=== PATIENT | male | born 1955 | race Caucasian/White ===

== ENCOUNTER → 2016-09-03 | Outpatient (REF) | payer BC ==
[2016-09-03 10:29] LABS: ALBUMIN/GLOBULIN RATIO 1.48 (1.00-1.93); ALKALINE PHOSPHATASE 75 U/L (45-117); ALT/SGPT 25 U/L (12-78); ANION GAP 9 MEQ/L (8-16); AST/SGOT 11 U/L (15-37); BLOOD UREA NITROGEN 24 MG/DL (7-18); CARBON DIOXIDE LEVEL 27 MEQ/L (21-32); CHLORIDE LEVEL 106 MEQ/L (98-107); CHOLESTEROL LEVEL 159 MG/DL (<200); CREATININE FOR GFR 1.06 MG/DL (0.70-1.30); GLOMERULAR FILTRATION RATE > 60.0 (>49); GLUCOSE, FASTING 100 MG/DL (80-110); POTASSIUM SERUM 4.5 MEQ/L (3.5-5.1); SODIUM LEVEL 142 MEQ/L (136-145); TOTAL PROTEIN 6.7 GM/DL (6.4-8.2); TRIGLYCERIDES LEVEL 66 MG/DL (<150)
== END ==
LOC: M SFHCLERA 08:21
PROVIDERS: ATTEND Internal Medicine
DX: I10 Essential (primary) hypertension (principal); E78.00 Pure hypercholesterolemia, unspecified

== ENCOUNTER → 2016-11-16 | Outpatient (CLI) | payer BC ==
[~2016-11-16] VITALS: Ht 182.9 cm; Wt 108.9 kg
[~2016-11-16] MED LIST: AMLO5TAB2 PO; ATOR1TAB21 PO; LIDOCAINE 2% INJ 100 MG/5 ML SDV (FOR ANES.) As Ordered ONE; LISI20TA PO; MELO15TA4 PO; NS 1,000 ML IV SCH; PROPOFOL 200 MG/20 ML VIAL As Ordered ONE; RANI1TAB6 PO
--- NOTE | 2016-11-16 10:01 | ROOR ---
Patient Name: Perico Erickson Procedure Date: 11/16/2016 9:41 AM Date of : 1955 Age: 61 Room: [facility] Gender: Male Note Status: Finalized Procedure: Colonoscopy Indications: High risk colon cancer surveillance: Personal history of colonic polyps, Last colonoscopy: January 2013 Providers: Young CAI MD Referring MD: Rich Gould MD Requesting Provider: Medicines: Monitored Anesthesia Care Complications: No immediate complications. Procedure: Pre-Anesthesia Assessment: - The heart rate, respiratory rate, oxygen saturations, blood pressure, adequacy of pulmonary ventilation, and response to care were monitored throughout the procedure. The Colonoscope was introduced through the anus and advanced to the cecum, identified by appendiceal orifice and ileocecal valve. The colonoscopy was performed without difficulty. The patient tolerated the procedure well. The quality of the bowel preparation was good. Findings: The perianal and digital rectal examinations were normal. A diminutive polyp was found in the sigmoid colon. The polyp was sessile. The polyp was removed with a cold snare. Resection and retrieval were complete. Multiple medium-mouthed diverticula were found in the sigmoid colon. Small Internal Hemorrhoids. The exam was otherwise without abnormality on direct and retroflexion views. Impression: - One diminutive polyp in the sigmoid colon, removed with a cold snare. Resected and retrieved. - Mild diverticulosis in the sigmoid colon. - Small Internal Hemorrhoids. - The examination was otherwise normal on direct and retroflexion views. Recommendation: - Repeat colonoscopy in 5 years for surveillance based on personal history of previous adenomatous polyps. Young Cai MD Young CAI MD 11/16/2016 10:01:28 AM This report has been signed electronically. Number of Addenda: 0 Note Initiated On: 11/16/2016 9:41 AM Estimated Blood Loss: Estimated blood loss: none.
[2016-11-16 10:30] VITALS: BP 155/82
== END | disposition home or self-care (01) ==
LOC: M OPP 08:17
PROVIDERS: ATTEND Internal Medicine Gastroenterology
DX: Z12.11 Encounter for screening for malignant neoplasm of colon (principal); D12.5 Benign neoplasm of sigmoid colon; K57.30 Diverticulosis of large intestine without perforation or abscess without bleeding; K64.8 Other hemorrhoids; Z86.010 Personal history of colon polyps; K57.92 Diverticulitis of intestine, part unspecified, without perforation or abscess without bleeding; I10 Essential (primary) hypertension; E78.5 Hyperlipidemia, unspecified; M19.90 Unspecified osteoarthritis, unspecified site; M25.9 Joint disorder, unspecified; Z79.899 Other long term (current) drug therapy; Z80.3 Family history of malignant neoplasm of breast

== ENCOUNTER → 2017-03-05 | Outpatient (REF) | payer BC ==
[~2017-03-05] MED LIST changes: -LIDOCAINE 2% INJ 100 MG/5 ML SDV (FOR ANES.) As Ordered ONE; -NS 1,000 ML IV SCH; -PROPOFOL 200 MG/20 ML VIAL As Ordered ONE
[2017-03-05 11:53] LABS: MEAN CORPUSCULAR HEMOGLOBIN 30.2 pg (27.0-33.0); MEAN CORPUSCULAR HGB CONC 34.3 g/dl (32.0-36.5); MEAN CORPUSCULAR VOLUME 88.2 fl (80.0-96.0); RED CELL DISTRIBUTION WIDTH 12.1 % (11.5-14.5); WHITE BLOOD COUNT 5.1 K/mm3 (4.0-10.0)
[2017-03-05 12:08] LABS: ALBUMIN 4.2 GM/DL (3.2-5.2); ALBUMIN/GLOBULIN RATIO 1.35 (1.00-1.93); ALKALINE PHOSPHATASE 91 U/L (45-117); ALT/SGPT 34 U/L (12-78); ANION GAP 6 MEQ/L (8-16); AST/SGOT 13 U/L (15-37); BILIRUBIN,TOTAL 0.8 MG/DL (0.2-1.0); BLOOD UREA NITROGEN 27 MG/DL (7-18); CALCIUM LEVEL 9.3 MG/DL (8.8-10.2); CARBON DIOXIDE LEVEL 31 MEQ/L (21-32); CHLORIDE LEVEL 104 MEQ/L (98-107); CHOLESTEROL LEVEL 178 MG/DL (<200); CREATININE FOR GFR 1.27 MG/DL (0.70-1.30); GLOMERULAR FILTRATION RATE > 60.0 (>49); GLUCOSE, FASTING 98 MG/DL (80-110); MAGNESIUM LEVEL 2.3 MG/DL (1.8-2.4); POTASSIUM SERUM 4.3 MEQ/L (3.5-5.1); SODIUM LEVEL 141 MEQ/L (136-145); TOTAL PROTEIN 7.3 GM/DL (6.4-8.2); TRIGLYCERIDES LEVEL 91 MG/DL (<150)
== END ==
LOC: M SFHCLERA 08:31
PROVIDERS: ATTEND Internal Medicine
DX: K21.9 Gastro-esophageal reflux disease without esophagitis (principal); I10 Essential (primary) hypertension; E78.00 Pure hypercholesterolemia, unspecified

== ENCOUNTER → 2017-08-24 | Outpatient (REF) | payer BC ==
[2017-08-24 18:14] LABS: ANION GAP 10 MEQ/L (8-16); BLOOD UREA NITROGEN 20 MG/DL (7-18); CALCIUM LEVEL 9.1 MG/DL (8.8-10.2); CARBON DIOXIDE LEVEL 26 MEQ/L (21-32); CHLORIDE LEVEL 102 MEQ/L (98-107); CREATININE FOR GFR 1.19 MG/DL (0.70-1.30); GLOMERULAR FILTRATION RATE > 60.0 (>49); GLUCOSE, FASTING 91 MG/DL (70-100); SODIUM LEVEL 138 MEQ/L (136-145)
== END ==
LOC: M LABDRAWP 17:12
DX: Z01.812 Encounter for preprocedural laboratory examination (principal); S76.111A Strain of right quadriceps muscle, fascia and tendon, initial encounter; W18.30XA Fall on same level, unspecified, initial encounter; Y92.009 Unspecified place in unspecified non-institutional (private) residence as the place of occurrence of the external cause
CPT/HCPCS: 80048

== ENCOUNTER → 2017-09-08 | Outpatient (REF) | payer BC ==
[2017-09-09 12:41] LABS: APPEARANCE, URINE CLEAR (CLEAR); BACTERIA, URINE AUTO NEGATIVE (NEGATIVE); BILIRUBIN, URINE AUTO NEGATIVE (NEGATIVE); BLOOD, URINE BLOOD 1+ (NEGATIVE); COLOR, URINE YELLOW (YELLOW); GLUCOSE, URINE (UA) AUTO NEGATIVE (NEGATIVE); KETONE, URINE AUTO NEGATIVE (NEGATIVE); LEUKOCYTE ESTERASE, URINE AUTO NEGATIVE (NEGATIVE); MUCUS, URINE SMALL (NEGATIVE); NITRITE, URINE AUTO NEGATIVE (NEGATIVE); PROTEIN, URINE AUTO NEGATIVE (NEGATIVE); RBC, URINE AUTO 1 /HPF (0-3); SPECIFIC GRAVITY URINE AUTO 1.014 (1.002-1.035); SQUAMOUS EPITHELIAL CELL UR AU 0 /HPF (0-6); UROBILINOGEN, URINE AUTO 0.2 mg/dL (0.0-2.0); WBC, URINE AUTO 0 /HPF (0-3)
== END ==
LOC: M SFHCPLAZ 16:16
DX: R30.0 Dysuria (principal)
CPT/HCPCS: 81001

== ENCOUNTER → 2017-11-16 | Outpatient (REF) | payer BC ==
[2017-11-16 12:44] LABS: ALBUMIN 4.1 GM/DL (3.2-5.2); ALBUMIN/GLOBULIN RATIO 1.28 (1.00-1.93); ALKALINE PHOSPHATASE 89 U/L (45-117); ALT/SGPT 28 U/L (12-78); ANION GAP 6 MEQ/L (8-16); AST/SGOT 13 U/L (7-37); BILIRUBIN,TOTAL 0.9 MG/DL (0.2-1.0); BLOOD UREA NITROGEN 16 MG/DL (7-18); CARBON DIOXIDE LEVEL 28 MEQ/L (21-32); CHLORIDE LEVEL 105 MEQ/L (98-107); CHOLESTEROL LEVEL 179 MG/DL (<200); CHOLESTEROL RISK RATIO 4.068 (<5); CREATININE FOR GFR 1.16 MG/DL (0.70-1.30); GLOMERULAR FILTRATION RATE > 60.0 (>49); GLUCOSE, FASTING 102 MG/DL (70-100); HDL CHOLESTEROL 44 MG/DL (>40); LDL CHOLESTEROL 102.6 MG/DL (<100); MAGNESIUM LEVEL 2.2 MG/DL (1.8-2.4); NON-HDL-C 135 MG/DL; POTASSIUM SERUM 4.3 MEQ/L (3.5-5.1); SODIUM LEVEL 139 MEQ/L (136-145); TOTAL PROTEIN 7.3 GM/DL (6.4-8.2); TRIGLYCERIDES LEVEL 162 MG/DL (<150)
== END ==
LOC: M SFHCLERA 08:24
DX: I10 Essential (primary) hypertension (principal); E78.00 Pure hypercholesterolemia, unspecified
CPT/HCPCS: 83735

== ENCOUNTER → 2018-04-20 | Outpatient (REF) | payer BC ==
[2018-04-20 11:35] LABS: HEMATOCRIT 40.8 % (42.0-52.0); HEMOGLOBIN 13.8 g/dl (13.5-17.5); MEAN CORPUSCULAR HEMOGLOBIN 29.1 pg (27.0-33.0); MEAN CORPUSCULAR HGB CONC 33.8 g/dl (32.0-36.5); MEAN CORPUSCULAR VOLUME 86.1 fl (80.0-96.0); PLATELET COUNT, AUTOMATED 187 10^3/uL (150-450); RED BLOOD COUNT 4.74 10^6/uL (4.30-6.10); RED CELL DISTRIBUTION WIDTH 11.8 % (11.5-14.5)
[2018-04-20 12:22] LABS: ALBUMIN 4.1 GM/DL (3.2-5.2); ALBUMIN/GLOBULIN RATIO 1.41 (1.00-1.93); ALKALINE PHOSPHATASE 83 U/L (45-117); ALT/SGPT 24 U/L (12-78); ANION GAP 10 MEQ/L (8-16); AST/SGOT 9 U/L (7-37); BLOOD UREA NITROGEN 21 MG/DL (7-18); CALCIUM LEVEL 9.3 MG/DL (8.8-10.2); CARBON DIOXIDE LEVEL 25 MEQ/L (21-32); CHLORIDE LEVEL 104 MEQ/L (98-107); CHOLESTEROL LEVEL 178 MG/DL (<200); CHOLESTEROL RISK RATIO 4.238 (<5); CREATININE FOR GFR 1.21 MG/DL (0.70-1.30); GLOMERULAR FILTRATION RATE > 60.0 (>49); GLUCOSE, FASTING 99 MG/DL (70-100); HDL CHOLESTEROL 42 MG/DL (>40); LDL CHOLESTEROL 109 MG/DL (<100); MAGNESIUM LEVEL 2.3 MG/DL (1.8-2.4); NON-HDL-C 136 MG/DL; POTASSIUM SERUM 4.4 MEQ/L (3.5-5.1); SODIUM LEVEL 139 MEQ/L (136-145); TRIGLYCERIDES LEVEL 134 MG/DL (<150)
[2018-04-20 12:49] LABS: ESTIMATED AVERAGE GLUCOSE 120 MG/DL (60-110); HEMOGLOBIN A1c 5.8 %
== END ==
LOC: M SFHCPLAZ 08:46
DX: K21.9 Gastro-esophageal reflux disease without esophagitis (principal); I10 Essential (primary) hypertension; R73.01 Impaired fasting glucose; E78.00 Pure hypercholesterolemia, unspecified

== ENCOUNTER → 2018-10-27 | Outpatient (REF) | payer BC, MEDICARE ==
[~2018-10-27] MED LIST changes: -AMLO5TAB2 PO; +AMLO5TAB6 PO; +MELO15TA28 PO; -MELO15TA4 PO
[2018-10-27 11:38] LABS: HEMATOCRIT 44.8 % (42.0-52.0); HEMOGLOBIN 14.8 g/dl (13.5-17.5); MEAN CORPUSCULAR VOLUME 87.8 fl (80.0-96.0); PLATELET COUNT, AUTOMATED 199 10^3/uL (150-450)
[2018-10-27 11:43] LABS: ALBUMIN 4.2 GM/DL (3.2-5.2); ALT/SGPT 23 U/L (12-78); BILIRUBIN,TOTAL 1.3 MG/DL (0.2-1.0); BLOOD UREA NITROGEN 20 MG/DL (7-18); CALCIUM LEVEL 9.3 MG/DL (8.8-10.2); CARBON DIOXIDE LEVEL 28 MEQ/L (21-32); CHLORIDE LEVEL 105 MEQ/L (98-107); CHOLESTEROL LEVEL 174 MG/DL (<200); CHOLESTEROL RISK RATIO 4.046 (<5); GLOMERULAR FILTRATION RATE > 60.0 (>49); GLUCOSE, FASTING 99 MG/DL (70-100); HDL CHOLESTEROL 43 MG/DL (>40); LDL CHOLESTEROL 109 MG/DL (<100); MAGNESIUM LEVEL 2.1 MG/DL (1.8-2.4); NON-HDL-C 131 MG/DL; POTASSIUM SERUM 4.5 MEQ/L (3.5-5.1); SODIUM LEVEL 139 MEQ/L (136-145); TOTAL PROTEIN 7.1 GM/DL (6.4-8.2); TRIGLYCERIDES LEVEL 111 MG/DL (<150)
== END ==
LOC: M SFHCPLAZ 09:31
PROVIDERS: ATTEND Internal Medicine
DX: K21.9 Gastro-esophageal reflux disease without esophagitis (principal); I10 Essential (primary) hypertension; E78.00 Pure hypercholesterolemia, unspecified; Z86.010 Personal history of colon polyps

== ENCOUNTER → 2019-04-27 | Outpatient (REF) | payer BC, MEDICARE ==
[~2019-04-27] MED LIST changes: +ALDA25TA2 PO; +AMIO200T PO; +AMLO10TA5; +AMLO10TA5 PO; +ATEN50TA2 PO; +CHLO125TA; +CHLO25TA PO; +ELIQ5TAB PO; +FAMO20TA PO; +LISI-538; +LISI-538 PO; +LISI10TA4 PO; -LISI20TA PO; +LISI20TA19 PO; +RANI-356 PO; +RANI1TAB38 PO; -RANI1TAB6 PO; +TORS10TA3 PO
[2019-04-27 11:33] LABS: HEMOGLOBIN 14.3 g/dl (13.5-17.5); MEAN CORPUSCULAR HEMOGLOBIN 31.1 pg (27.0-33.0); MEAN CORPUSCULAR HGB CONC 34.9 g/dl (32.0-36.5); MEAN CORPUSCULAR VOLUME 89.1 fl (80.0-96.0); PLATELET COUNT, AUTOMATED 200 10^3/uL (150-450)
[2019-04-27 11:59] LABS: ALBUMIN 3.9 GM/DL (3.2-5.2); ALT/SGPT 27 U/L (12-78); BILIRUBIN,TOTAL 1.5 MG/DL (0.2-1.0); BLOOD UREA NITROGEN 19 MG/DL (7-18); CARBON DIOXIDE LEVEL 28 MEQ/L (21-32); CHLORIDE LEVEL 101 MEQ/L (98-107); CREATININE FOR GFR 1.15 MG/DL (0.70-1.30); GLOMERULAR FILTRATION RATE > 60.0 (>49); GLUCOSE, FASTING 106 MG/DL (70-100); MAGNESIUM LEVEL 1.9 MG/DL (1.8-2.4); POTASSIUM SERUM 4.1 MEQ/L (3.5-5.1); SODIUM LEVEL 138 MEQ/L (136-145)
== END ==
LOC: M SFHCPLAZ 08:30
PROVIDERS: ATTEND Internal Medicine
DX: K21.9 Gastro-esophageal reflux disease without esophagitis (principal); I10 Essential (primary) hypertension

== ENCOUNTER 2019-05-29 19:38 | Inpatient (IN) | payer BC, MEDICARE ==
[~2019-05-29] VITALS: Ht 182.9 cm; Wt 113.7 kg
[~2019-05-29 19:38] MED LIST changes: -ALDA25TA2 PO; -AMIO200T PO; -AMLO10TA5; -AMLO10TA5 PO; -ATEN50TA2 PO; -CHLO125TA; -CHLO25TA PO; -ELIQ5TAB PO; -FAMO20TA PO; -LISI-538; -LISI-538 PO; -LISI10TA4 PO; -RANI1TAB38 PO; -TORS10TA3 PO
[2019-05-29] MEDS ORDERED: AMLO10TA5 (19:50)
[2019-05-29] MEDS ORDERED: CHLO125TA (19:50)
[2019-05-29] MEDS ORDERED: LISI-538 (19:50)
[2019-05-29 20:18] LABS: BASO % 0.4 % (0.0-1.0); EOS # 0.2 10^3/uL (0.0-0.5); EOS % 2.6 % (0.0-3.0); HEMATOCRIT 41.4 % (42.0-52.0); HEMOGLOBIN 13.8 g/dl (13.5-17.5); LYMPH % 27.3 % (24.0-44.0); MEAN CORPUSCULAR HEMOGLOBIN 29.7 pg (27.0-33.0); MEAN CORPUSCULAR HGB CONC 33.3 g/dl (32.0-36.5); MEAN CORPUSCULAR VOLUME 89.2 fl (80.0-96.0); MONO # 1.2 10^3/uL (0.0-0.8); MONO % 16.8 % (0.0-5.0); NEUTROPHILS # 3.9 10^3/uL (1.5-8.5); NEUTROPHILS % 52.5 % (36.0-66.0); PLATELET COUNT, AUTOMATED 218 10^3/uL (150-450); RED BLOOD COUNT 4.64 10^6/uL (4.30-6.10); WHITE BLOOD COUNT 7.4 10^3/uL (4.0-10.0)
[2019-05-29] MEDS: METOPROLOL 5 MG/5 ML VIAL IV SCH ×6 (20:29→21:25)
[2019-05-29 20:40] LABS: BLOOD UREA NITROGEN 28 MG/DL (7-18); CALCIUM LEVEL 9.1 MG/DL (8.8-10.2); CARBON DIOXIDE LEVEL 24 MEQ/L (21-32); CHLORIDE LEVEL 104 MEQ/L (98-107); CK-MB VALUE MASS 1.5 NG/ML (<3.6); CPK CREATINE PHOSPHOKINASE 139 U/L (39-308); CREATININE FOR GFR 1.48 MG/DL (0.70-1.30); GLOMERULAR FILTRATION RATE 50.8 (>49); GLUCOSE, FASTING 117 MG/DL (70-100); MB/CK RELATIVE INDEX 1.08 (< OR =4); SODIUM LEVEL 138 MEQ/L (136-145); TROPONIN I < 0.02 NG/ML (< 0.10)
[2019-05-29] MEDS: ACETAMINOPHEN TAB 650MG DOSE (2X325MG) PO SCH (21:00)
[2019-05-29] MEDS: LISINOPRIL 10 MG TAB PO SCH (21:00)
[2019-05-29 21:05] LABS: FREE T4 1.05 NG/DL (0.76-1.46); MAGNESIUM LEVEL 1.9 MG/DL (1.8-2.4)
[2019-05-29] MEDS ORDERED: METOPROLOL TART 50 MG TAB PO ONE ×3 (21:15→23:45)
[2019-05-29] MEDS ORDERED: DIGOXIN INJ 0.5 MG/2 ML AMP (J1160) IV ONE ×2 (22:15→23:45)
[2019-05-30] VITALS (12 sets, daily range): BP systolic 96–155; BP diastolic 58–110
[2019-05-30] MEDS ORDERED: METOPROLOL TART 50 MG TAB PO ONE (01:00)
[2019-05-30] MEDS ORDERED: DIGOXIN INJ 0.5 MG/2 ML AMP (J1160) IV ONE (01:00)
[2019-05-30] MEDS ORDERED: AMIODARONE 200 MG TAB (PACERONE) PO ONE (01:15)
[2019-05-30 01:22] LABS: NT-PRO BNP 1421 PG/ML (<125)
[2019-05-30] MEDS ORDERED: RANI1TAB38 PO ×2 (01:29)
[2019-05-30] MEDS ORDERED: AMLO10TA5 PO (01:29)
[2019-05-30] MEDS ORDERED: MELO15TA28 PO (01:29)
[2019-05-30] MEDS ORDERED: LISI-538 PO (01:29)
[2019-05-30] MEDS ORDERED: CHLO25TA PO (01:29)
--- NOTE | 2019-05-30 01:48 | REP ---
Clinical: Chest pain . Comparison: None . Findings: The mediastinum and cardiac silhouette are relatively normal. Calcified hilar lymph nodes are suggested. The lung mitchell are clear without acute consolidation, effusion, or pneumothorax. Skeletal structures are intact. Impression: Calcified hilar lymph nodes suggesting prior granulomas disease. No focal consolidation. Electronically Signed by Francisco J Ngo MD 05/30/2019 01:39 A
[2019-05-30] MEDS: APIXABAN 5 MG TAB (ELIQUIS) PO SCH ×3 (03:04→21:44)
[2019-05-30 05:38] LABS: ALBUMIN 3.7 GM/DL (3.2-5.2); BLOOD UREA NITROGEN 24 MG/DL (7-18); CALCIUM LEVEL 8.8 MG/DL (8.8-10.2); CARBON DIOXIDE LEVEL 26 MEQ/L (21-32); CHLORIDE LEVEL 105 MEQ/L (98-107); CREATININE FOR GFR 1.33 MG/DL (0.70-1.30); GLOMERULAR FILTRATION RATE 57.4 (>49); GLUCOSE, FASTING 105 MG/DL (70-100); PHOSPHORUS LEVEL 3.5 MG/DL (2.5-4.9); POTASSIUM SERUM 4.1 MEQ/L (3.5-5.1); SODIUM LEVEL 139 MEQ/L (136-145); TROPONIN I < 0.02 NG/ML (< 0.10)
[2019-05-30] MEDS: ATENOLOL 50 MG TAB PO SCH ×4 (06:00→17:18)
[2019-05-30 08:18] LABS: ALT/SGPT 24 U/L (12-78); BILIRUBIN,DIRECT 0.2 MG/DL (0.0-0.2); BILIRUBIN,TOTAL 0.7 MG/DL (0.2-1.0); TOTAL PROTEIN 7.2 GM/DL (6.4-8.2)
[2019-05-30] MEDS: SPIRONOLACTONE 12.5MG PER 1/2 TABLET PO SCH (08:30)
[2019-05-30] MEDS ORDERED: PILL CUTTER 1 EACH XX PRN (08:30)
[2019-05-30] MEDS: LISINOPRIL 10 MG TAB PO SCH ×2 (08:31→21:44)
[2019-05-30] MEDS: TORSEMIDE 10 MG TABLET PO SCH (08:31)
[2019-05-30] MEDS: AMIODARONE 200 MG TAB (PACERONE) PO SCH ×4 (08:32→21:44)
[2019-05-30] MEDS: ATORVASTATIN 20 MG TAB PO SCH (08:32)
[2019-05-30] MEDS: FAMOTIDINE 20 MG TAB PO SCH (08:32)
[2019-05-30] MEDS: ACETAMINOPHEN TAB 650MG DOSE (2X325MG) PO SCH ×4 (08:35→21:00)
--- NOTE | 2019-05-30 10:15 | HPE ---
ADMISSION HISTORY AND PHYSICAL: DATE OF ADMISSION: 05/30/2019 Attending Physician: Dr. Kali Colón. Primary Care Physician: Dr. Rich Gould. CHIEF COMPLAINT: Increasing fatigue and palpitations with rapid pulse rate. 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 Gould for multiple medical problems including obesity and hypertension. Up until the past year he claims his chief limitation has been knee arthralgia. For the past year has been noticing intermittent sense of irregularity in his chest that might last moments or several minutes. Describes associated sense of weakness but no chest pain or dyspnea. This past week the sensation has been more intense persisting for 10 minutes or up to 1 hour. Yesterday the same symptoms recurred at approximately 5 p.m. but persisted leading to his current emergency room (ER) presentation. Upon his arrival in the emergency room, his initial vital signs showed a pulse rate of 152 beats per minute, blood pressure 190/104, respiratory rate 18 with oxygen saturation 100% on room air, afebrile. EKG showed atrial fibrillation with rapid ventricular response averaging 151 beats per minute. Chest x-ray was reported to show "cardiac silhouette relatively normal", "lung mitchell are clear without consolidation, effusion or pneumothorax." Complete blood count was normal. Chemistry showed a degree of azotemia, but negative cardiac enzymes and thyroid profile. After a series of doses of metoprolol 5 mg IV every 5 minutes and 50 mg by mouth to no avail, my cardiology service was contacted. Over the course of several hours digoxin was administered IV to a maximum of 1 mg with total metoprolol oral dosage and amiodarone 200 mg by mouth, his ventricular response was finally seemingly controlled between 90-120 beats per minute. We also started him on Eliquis 5 mg. In light of the difficulty of controlling his ventricular response, he was admitted to a telemetry unit for additional observation. OTHER CARDINAL CARDIAC SYMPTOMS: The patient's most vigorous activity had been going to the gym three times a week during the wintertime and some yard work chiefly limited he claims by knee arthralgia but also increasing effort dyspnea for the past year along with some fatigue. Chest Pain: Denies effort related chest pain. He is unaware of an abnormal EKG. Despite multiple coronary risk factors, no prior stress testing. History of gastroesophageal reflux with heartburn and reflux for the past 5 years. Treated with ranitidine. Denies dysphagia or gastrointestinal(GI) bleeding. Shortness of breath: Was exposed to secondhand smoke for at least 18 years growing up and started smoking himself at age 14 up to 1-1/2 packs per day until he stopped in his 50s. He cannot recall his last chest x-ray. Currently denies any cough but does have occasional sinus problems. No history of hemoptysis or prior pneumonia. Treated hypertension since his 50s with recent rate readings 140-150/70s. Unaware of cardiomegaly. Significant weight problem (weighed 150 pounds at age 16; max weight currently at 252 pounds; claims to have gained 5 pounds this past year). No history of rheumatic fever or heart murmur. Has had increasing effort dyspnea in the past year. Has had some restless sleeping and nocturnal dyspnea. Denies history of snoring or apnea but has a family history of obstructive sleep apnea. Palpitations: As mentioned above, has had an abnormal awareness of his heart action the past year and certainly more distressing recently. No previously documented rhythm disturbance. Does have a family history of atrial fibrillation. Denies any family history of premature sudden cardiac or congenital deafness. Admits to drinking at least 1 to 1-1/2 cups of caffeinated coffee daily and half a gallon of caffeinated iced tea daily. Occasional soda. At least two alcoholic beverages weekly. No history of thyroid dysfunction. Does not use [id number] decongestants, pep pills or diet pills. Near syncope/syncope: With his bouts of pulse irregularity does become fatigued and sits down but his only falls have been related to slipping on the ice. No prior loss of consciousness. Embolic phenomenon: Denies any lateralizing neurological deficit, flank pain, hematuria or blue toe syndrome. Claudication/peripheral venous disease: Denies effort related calf discomfort. Unaware of varicose veins or phlebitis but has noted some ankle swelling the past year or so. CARDINAL CARDIAC RISK FACTORS: Male gender. Age. Obesity. Hypertension. Hypercholesterolemia for at least past 5-6 years. Denies diabetes mellitus, carotid vascular disease or family history of premature coronary disease. OTHER PAST MEDICAL/SURGICAL HISTORY: Obesity. Two prior knee surgeries left and right. Prior colonic polypectomy. History of prior diverticulitis. SYSTEMS REVIEW: Denies any fever, chills or weight loss. Wears corrective lenses. No hearing problems. Has own teeth. Respiratory and cardiac as mentioned above. GI as mentioned above. History of diverticular disease, but no GI bleeding or melena. Nocturia once to three times nightly, some hesitancy. Unaware of a history of prostatism or prior renal insufficiency. No history of kidney stones. Bilateral knee arthralgia but no other joint complaints. Seasonal allergies. All other systems review is negative. MEDICATIONS: At home his medications included: - lisinopril 20 mg by mouth daily - chlorthalidone 25 mg daily - amlodipine 10 mg daily - atorvastatin 20 mg tablets Mondays, Wednesdays and Fridays only - ranitidine 150 mg by mouth every morning with second dose every evening as needed - meloxicam 15 mg by mouth daily as needed, arthralgia ALLERGIES: NONE KNOWN. PHYSICAL EXAMINATION: Constitutional: Barrel-chested, obese, late middle-aged male currently lying comfortably with the head of bed elevated 30 degrees. No obvious pallor or cyanosis. Vital signs: Heart rate varying between 80s-120. Blood pressure 128/74 right arm supine, 136/82 right arm sitting, 144/78 left arm sitting. Respiratory rate 16. Oxygen saturation 96% on room air. Afebrile. Weight 263 pounds. Height 72 inches. Body mass index (BMI) 35.7 Eyes: Bilateral senile arcus but no pallor or icterus. No xanthelasma. ENT/Mouth: Multiple missing teeth but normal oral moisture. No central cyanosis. Neck: Trachea midline. Thyroid not enlarged. Jugular veins were elevated at least 8-10 cm above the sternal angle. Respiratory: Increased anteroposterior chest diameter with slightly reduced chest expansion with fair air entry over both lung mitchell. No inspiratory rales. Slight prolongation of expiration but no audible wheeze. Cardiovascular: Apical impulse not palpable. Heart sounds somewhat distant and variable. S2 splitting was still appreciated with accentuated pulmonary component of S2 audible over the right base. No audible gallop, murmur or rub. Carotid arteries show a normal upstroke but variable volume related to his arrhythmia. No bruits. Peripheral pulses were symmetrical for his upper extremities. Abdominal aorta was not palpable. No bruit. Femoral pulses were challenging because of his obesity. Pedal pulses were slightly challenging because of his dependent edema. No obvious varicose veins but a few dilated superficial venules. Obvious pitting edema three-quarters of the way up both lower legs and over his sacrum and lower lumbar spine posteriorly. GI: Protuberant, obese abdomen with lower abdominal pannus. Unable to detect hepatosplenomegaly. Normal bowel sounds. Rectal examination not indicated but stool will be collected for occult blood. Musculoskeletal: Obvious well-healed incisions over both knees but no other joint deformities. Muscular strength and tone appear to be normal. Normal spine curvature. Gait was not assessed at this time. Neuro/Psych: Bright, alert and oriented, gave a fair history. Eye, facial, extremity movements were symmetrical and normal. No involuntary movements. Skin: Some degenerative changes of skin both lower legs but no other rashes, ecchymotic lesions, pallor or icterus. INVESTIGATIONS: Chest x-ray: Portable upright study performed in the emergency room yesterday was reviewed independently. My radiology colleagues opinion it showed obvious cardiomegaly even allowing for this portable technique. Slightly unfolded thoracic aorta. Somewhat prominent pulmonary trunk and proximal pulmonary vasculature with somewhat accentuated interstitial markings but no obvious Meagan B lines or pleural effusions. EKG: Tracing taken yesterday at 7:49 p.m. showed underlying atrial fibrillation with rapid ventricular response averaging 151 bpm. Low voltages with extreme left axis deviation and poor precordial R wave progression with persistent S waves V5 and V6. Appearance related to obesity and his prior smoking history. Could not rule out prior septal or inferior infarctions. Has anterolateral ST/T wave abnormalities. Despite his multiple coronary risk factors and hypertension there is no prior EKG available for comparison. Blood work: Admission complete blood count showed a hemoglobin of 13.8, normal white blood cell count and platelet count. Electrolytes were normal but BUN was elevated at 28, creatinine was 1.48. These values are up from April 27 when they measured 19 and 1.15. Random glucose was only slightly elevated at 117. Magnesium level was normal 1.9. Serum calcium was normal. Albumin 3.9. Cardiac enzymes were negative but BNP level was elevated at 1421. TSH was 2.86 with free T4 1.05. PROVISIONAL DIAGNOSIS: 1. New-onset atrial fibrillation with rapid ventricular response: Although a precise onset cannot be defined, I suspect from his history and the observed rapid rate this is unlikely to have been more than a few days at most. Undoubtedly this has contributed to his effort intolerance and lightheadedness. Given his clinical examination and chest x-ray and EKG findings this is likely related to left ventricular enlargement with left atrial enlargement secondary to his longstanding obesity and hypertension. Unable to detect a murmur to suggest valvular disease. An echocardiogram/Doppler study has been requested to define cardiac chamber sizes and valvular function. At this point, we have discussed the importance of avoiding caffeinated beverages and minimizing alcohol exposure. At this point, he has been digitalized but with his renal insufficiency and our initiation of amiodarone for heart rate and rhythm control I have elected to withhold further doses of digoxin for the time being. He is receiving amiodarone 200 mg four times a day and we will continue to monitor him for at least the next 72 hours in hospital. He will continue on atenolol 50 mg by mouth every 6 hours; hold for heart rate in atrial fibrillation for less than 90 beats per minute and in sinus rhythm for heart rate less than 60. He has been already started on Eliquis in light of his relatively high risk of systemic thromboembolic event (male gender, hypertension and congestive heart failure). I am cautiously optimistic that he will respond to these medical agents, electrocardioversion would be deferred until he is loaded on amiodarone in light of his rapid ventricular response and requiring multiple antiarrhythmic agents. 2. Heart failure (unspecified): Has obvious cardiomegaly as mentioned above with some evidence of pulmonary hypertension and right heart failure clinically. Underlying heart disease likely of some chronicity. We cannot find and old chest x-ray in the [facility] or an old EKG for comparison. Likely his left ventricular dysfunction has been prompted by his chronic obesity and hypertension but could not rule out prior infarction with his multiple coronary risk factors. We have discussed the crucial importance of a modest salt and caloric restriction as well as a modest fluid intake restriction. We have requested the assistance of the cardiac rehab service for congestive heart failure (CHF) education and gradual ambulation. He has been started on low-dose torsemide and spironolactone and we will closely monitor his blood pressure fluid status and renal function as well as electrolytes. His acute decompensation is likely related to recent onset atrial fibrillation with rapid ventricular response. Crucial management measure will be control of his heart rate and possibly christian of a normal sinus rhythm. As mentioned, echocardiogram/Doppler study is pending at this time. 3. Abnormal EKG: Features in keeping with his body habitus and pulmonary disease but as mentioned has at least a left axis deviation and repolarization abnormalities possibly related to underlying left ventricle hypertrophy. Could not rule out prior septal or inferior infarctions. Would be tempted to obtain an objective definition of his coronary prognosis as an outpatient. 4. Hypertensive heart disease (benign with heart failure): Decompensated as mentioned above. Suspect this has been a condition gradually worsening over some time. Current blood pressure would be considered fairly controlled but should be improved with combination of beta-rob, torsemide and spirolactone therapies. His lisinopril therapy will be withheld for systolic blood pressures less than 130 mmHg. Temporarily the dosage has been made 10 mg twice a day rather than 20 mg daily. 5. BMI 35.7: I suspect with his weight problem, sleep disorder and family history of obstructive sleep apnea he probably does have obstructive sleep apnea and this may account for an element of his right heart failure. His echocardiogram/Doppler study will objectively define his right heart chambers, pulmonary atrial and central venous pressures for us. While he is in hospital, we will obtain a nocturnal oximetry as a screen for obstructive sleep apnea. We have emphasized importance of weight reduction to reduce cardiopulmonary workload and reduce his risk of further rhythm disturbances and help his heart failure. A consultation has been placed with dietary for a low-carbohydrate diet, no added salt and 1500 mL fluid intake restriction. We have discussed these opinions and our plan with the patient and his daughter who is a physician assistant to the president. They appear to understand and agree. Further investigations and treatment will depend on his response to these measures. [place]
[2019-05-30 12:41] LABS: APPEARANCE, URINE CLEAR (CLEAR); BACTERIA, URINE AUTO NEGATIVE (NEGATIVE); BILIRUBIN, URINE AUTO NEGATIVE (NEGATIVE); BLOOD, URINE BLOOD NEGATIVE (NEGATIVE); COLOR, URINE COLORLESS (YELLOW); GLUCOSE, URINE (UA) AUTO NEGATIVE (NEGATIVE); KETONE, URINE AUTO NEGATIVE (NEGATIVE); LEUKOCYTE ESTERASE, URINE AUTO NEGATIVE (NEGATIVE); MUCUS, URINE SMALL (NEGATIVE); NITRITE, URINE AUTO NEGATIVE (NEGATIVE); PROTEIN, URINE AUTO NEGATIVE (NEGATIVE); RBC, URINE AUTO 0 /HPF (0-3); SPECIFIC GRAVITY URINE AUTO 1.004 (1.002-1.035); SQUAMOUS EPITHELIAL CELL UR AU 0 /HPF (0-6); UROBILINOGEN, URINE AUTO 0.2 mg/dL (0.0-2.0); WBC, URINE AUTO 0 /HPF (0-3)
--- NOTE | 2019-05-30 20:01 | ECHO ---
DATE OF PROCEDURE: 05/30/2019 DATE OF : 1955 AGE: 63 GENDER: Male HEIGHT: 72 inches WEIGHT: 255 pounds BODY SURFACE AREA: 2.37 meters squared INPATIENT: Intensive care unit (ICU) REFERRING PHYSICIAN: Dr. Kali Colón INDICATION: Atrial fibrillation with heart failure (unspecified). MEASUREMENTS: 2D Measurements: RV: 5.2 cm LV: 5.2 cm Septum: 1.3 cm Posterior wall: 1.3 cm Aortic root: 3.6 cm LA: 5.2 cm LVEF: 60-65% DOPPLER MEASUREMENTS: AV: 1.1 meters per second LVOT: 0.6 meters per second LVOT diameter: 2.0 cm MV-E: 80 Early mitral deceleration time: 201 milliseconds E prime medial: 6.7 E prime lateral: 11 Average E/E prime ratio: 9 Pulmonary capillary wedge pressure: 13 mmHg PV: 0.6 meters per second Pulmonary artery acceleration time: 90 milliseconds RVSP: 56 mmHg IVC: 2.6 cm COMMENTS: Underlying atrial fibrillation with average ventricular response 100 beats per minute. No intraventricular conduction disturbance. M-mode and two-dimensional echocardiography was performed with pulsed, continuous wave, color flow and tissue Doppler studies. Mild concentric left ventricular hypertrophy with some flattening of the septum (believed to be due to right ventricular pressure overload) but other left ventricular wall segments moved normally or were hyperkinetic. Preserved global resting left ventricular systolic function. Prominently dilated left atrium with current Doppler estimated mean left atrial pressure at least mildly increased. Prominently dilated right heart chambers with a degree of right ventricular hypokinesis and Doppler evidence of at least moderately severe pulmonary hypertension. At least moderately dilated inferior vena cava with absent respiratory collapse in keeping with an elevated central venous pressure/right heart failure. Mild aortic valvular sclerosis without stenosis and very mild insufficiency. Normal aortic dimensions. Moderate mitral annular calcification with some thickening of the mitral leaflets with adequate leaflet excursion and no posterior systolic buckling. Mild mitral insufficiency. Normal appearing tricuspid valve with severe tricuspid insufficiency. No apparent intracardiac mass or pericardial effusion. Edited 05/30/2019 [facility]
--- NOTE | 2019-05-30 22:09 | ECGEPIP ---
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
[2019-05-31] VITALS: BP 135/80
[2019-05-31 04:00] VITALS: BP 130/70
[2019-05-31] MEDS: ATENOLOL 50 MG TAB PO SCH ×4 (06:00→17:19)
[2019-05-31 06:07] LABS: ALBUMIN 3.5 GM/DL (3.2-5.2); CALCIUM LEVEL 8.7 MG/DL (8.8-10.2); CREATININE FOR GFR 1.38 MG/DL (0.70-1.30); GLOMERULAR FILTRATION RATE 55.1 (>49); PHOSPHORUS LEVEL 3.7 MG/DL (2.5-4.9); POTASSIUM SERUM 4.2 MEQ/L (3.5-5.1)
[2019-05-31 08:00] VITALS: BP 124/72
[2019-05-31] MEDS: LISINOPRIL 10 MG TAB PO SCH ×2 (08:40→20:53)
[2019-05-31] MEDS: TORSEMIDE 10 MG TABLET PO SCH (08:50)
[2019-05-31] MEDS: ATORVASTATIN 20 MG TAB PO SCH (08:50)
[2019-05-31] MEDS: FAMOTIDINE 20 MG TAB PO SCH (08:50)
[2019-05-31] MEDS: AMIODARONE 200 MG TAB (PACERONE) PO SCH ×4 (08:51→20:52)
[2019-05-31] MEDS: SPIRONOLACTONE 12.5MG PER 1/2 TABLET PO SCH (08:51)
[2019-05-31] MEDS: APIXABAN 5 MG TAB (ELIQUIS) PO SCH ×2 (08:51→20:52)
[2019-05-31] MEDS: ACETAMINOPHEN TAB 650MG DOSE (2X325MG) PO SCH ×4 (08:51→20:54)
[2019-05-31 12:00] VITALS: BP 142/70
--- NOTE | 2019-05-31 15:36 | IPN ---
DATE: 05/31/2019 CARDIOLOGY PROGRESS NOTE SUBJECTIVE: The patient has been up in his room to the bathroom without any chest discomfort, awareness of his heart action, shortness of breath, or dizziness. He is very happy with his improved blood pressure control and the reduction in his systemic edema. He is tolerating his current combination medical therapy without adverse effect. OBJECTIVE: Pleasant, obese, barrel-chested, late middle-aged male, laying comfortably flat. Heart rate 72 beats per minute and irregular, blood pressure 112/70 supine, 118/68 sitting with legs dependent, respiratory rate 16 with oxygen saturation 97% on room air. Afebrile. Generated a negative fluid balance of 2145 mL yesterday with drop in his body weight from 119.4 to 116.8 kg. Normal oral moisture. No central cyanosis. Trachea midline. Neck veins remain elevated 8 cm above the sternal angle. Increased anteroposterior chest diameter with reduced chest excursion, but good air entry over both lung mitchell with no present abnormal pulmonary adventitious sounds. Apical impulse not palpable. Heart sounds somewhat distant but irregular. Soft abdomen. Lower extremity pitting has significantly decreased. Still has plus/minus sacral pitting. 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 No ventricular ectopic activity or high-grade atrioventricular (AV) block. EKG: EKG this morning again shows underlying atrial fibrillation with controlled ventricular response averaging 83 beats per minute (BPM). Low voltages with slow precordial R wave progression and persistent S wave V5 and V6 continue related to his body habitus and pulmonary disease. Left axis deviation with QS pattern leads III and aVF. Could not rule out prior infarction. Subtle repolarization abnormalities appear less today than yesterday. ECHOCARDIOGRAM: Study reported officially yesterday, but does confirm mild concentric left ventricular hypertrophy with septal wall motion abnormality due to right ventricular pressure overload. Preserved global resting systolic function. Prominently dilated left atrium and right heart structures with moderately severe pulmonary hypertension and elevated estimated mean left atrial pressure. Prominently dilated inferior vena cava and absent respiratory collapse in keeping with elevated central venous pressure. Has mild aortic valvular sclerosis with only very mild insufficiency. Moderate mitral annular calcification with only mild insufficiency. His tricuspid valve was normal, but there was severe tricuspid insufficiency. BLOOD WORK: Chemistry today confirms electrolyte balance with fairly stable renal function, BUN 24, creatinine 1.38, despite his impressive negative fluid balance. Fasting glucose this morning 114. Albumin 3.5. IMPRESSION/PLAN: 1. New onset atrial fibrillation with rapid ventricular response: Gratifyingly, on his current combination atenolol and amiodarone, his ventricular response has come under control. With his renal insufficiency and amiodarone, I elected to not restart digoxin. For the time being, he is on amiodarone 200 mg four times a day. I would like to monitor him for an additional 48 hours at this dosage. Atenolol is being given every 6 hours with hold parameters until we are able to comfortably decide precisely how much beta rob he will require for rate control. He is tolerating his Eliquis oral anticoagulation without adverse effect. 2. Heart failure (diastolic / acute on chronic): Has been responding well to his diuretic therapy. Still continues to be fluid overloaded. Electrolytes are in balance with stable renal insufficiency. The cardiac rehabilitation program is giving him instruction regarding his congestive heart failure (CHF). 3. Abnormal EKG: Has multiple coronary risk factors with EKG suggesting prior inferior infarction, but his echocardiogram confirms there has not been an infarction. Wall motion was symmetrical except for septal motion due to his right ventricular pressure overload. We will plan on obtaining a treadmill versus pharmacological stress heart scan as an outpatient. 4. Hypertensive heart disease (benign with heart failure): His blood pressure has responded well to diuresis and his current beta rob therapy. Remains on combination atenolol for rate control, torsemide, and spironolactone. At this point, he is receiving his lisinopril intermittently at the dosage change, 10 mg twice a day with hold parameter. I am hoping he will still be able to tolerate at least low dose angiotensin converting enzyme (TAWANNA) inhibitor with his diabetes and renal insufficiency. We will continue to monitor his renal function closely. 5. Cor pulmonale (chronic) / right heart failure: His recent echocardiogram shows right-sided dysfunction beyond what we would expect with his left ventricular dysfunction. I suspect this is related to his obesity and sleep disturbance. Nocturnal oximetry study is pending. We are performing this as a screen for obstructive sleep apnea. Official testing will be requested through pulmonary medicine should his screening study be abnormal. 6. Mitral and aortic valve disorder (nonrheumatic) / insufficiency: Has no more than mild mitral and very mild aortic insufficiency. No symptoms or signs of endocarditis. His severe tricuspid insufficiency is not related to intrinsic valve disease but his dilated right ventricle and tricuspid annulus. 7. Obesity / body mass index (BMI) 35: Again, we have emphasized the importance of him continuing on a low carbohydrate diet with regular, low level aerobic exercise. Every pound he loses will reduce cardiac and pulmonary workload and will also reduce his risk of recurrent atrial fibrillation. We intend to continue monitoring for at least an additional 24 hours. This will be reassessed tomorrow.
[2019-05-31 16:00] VITALS: BP 126/66
[2019-05-31 20:00] VITALS: BP 141/91
--- NOTE | 2019-05-31 20:14 | ECGEPIP ---
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
[2019-06-01] VITALS (7 sets, daily range): BP systolic 110–138; BP diastolic 61–76
[2019-06-01 05:35] LABS: ALBUMIN 3.6 GM/DL (3.2-5.2); CREATININE FOR GFR 1.59 MG/DL (0.70-1.30); GLOMERULAR FILTRATION RATE 46.7 (>49); PHOSPHORUS LEVEL 4.4 MG/DL (2.5-4.9); POTASSIUM SERUM 4.3 MEQ/L (3.5-5.1)
[2019-06-01] MEDS: ATENOLOL 50 MG TAB PO SCH ×4 (06:53→18:00)
--- NOTE | 2019-06-01 08:25 | ECGEPIP ---
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
--- NOTE | 2019-06-01 08:34 | ECGEPIP ---
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
[2019-06-01] MEDS: FAMOTIDINE 20 MG TAB PO SCH (09:34)
[2019-06-01] MEDS: SPIRONOLACTONE 12.5MG PER 1/2 TABLET PO SCH (09:34)
[2019-06-01] MEDS: AMIODARONE 200 MG TAB (PACERONE) PO SCH ×3 (09:34→18:00)
[2019-06-01] MEDS: LISINOPRIL 10 MG TAB PO SCH (09:35)
[2019-06-01] MEDS: TORSEMIDE 10 MG TABLET PO SCH (09:35)
[2019-06-01] MEDS: ATORVASTATIN 20 MG TAB PO SCH (09:35)
[2019-06-01] MEDS: APIXABAN 5 MG TAB (ELIQUIS) PO SCH (09:35)
[2019-06-01] MEDS: ACETAMINOPHEN TAB 650MG DOSE (2X325MG) PO SCH ×3 (09:40→17:00)
--- NOTE | 2019-06-01 10:24 | NOCOX ---
DATE OF PROCEDURE: 05/31/2019 into the morning of 06/01/2019 ORDERED BY: Dr. Colón The study is performed on room air. Study of excellent technical quality. Mean oxygen saturation for the study, 95.2%. The lowest reliably recorded saturation briefly at 87%. There are some periods of variability at approximately 0215 and 0330. The area at 0215 suggests primarily Jas-Velarde respirations, however. IMPRESSION: Borderline nocturnal oxymetry. Please correlate clinically.
[2019-06-01] MEDS ORDERED: FAMO20TA PO (18:29)
[2019-06-01] MEDS ORDERED: LISI10TA4 PO (18:29)
[2019-06-01] MEDS ORDERED: ATEN50TA2 PO (18:29)
[2019-06-01] MEDS ORDERED: AMIO200T PO (18:29)
[2019-06-01] MEDS ORDERED: TORS10TA3 PO (18:29)
[2019-06-01] MEDS ORDERED: ALDA25TA2 PO (18:29)
[2019-06-01] MEDS ORDERED: ELIQ5TAB PO (18:29)
--- NOTE | 2019-06-01 19:12 | DSES ---
DISCHARGE SUMMARY: DATE OF ADMISSION: 05/29/2019 DATE OF DISCHARGE: 06/01/2019 ATTENDING PHYSICIAN: Dr. Kali Colón PRIMARY CARE PHYSICIAN: Dr. Rich Gould CLINICAL SUMMARY: This 63-year-old resident of [place] has multiple medical problems followed by Dr. Gould including obesity, hypertension, hypercholesterolemia. Presented to [facility] ER with several week history of increasing fatigue and intermittent irregularity in his chest. This latter sensation was more sustained leading to his ER presentation. He was found to be in atrial fibrillation with ventricular response of 152 beats per minute. Chest x-ray showed cardiomegaly. BNP level was elevated at 1500. Please refer to my admission history and physical for further details. INVESTIGATIONS AND COURSE IN HOSPITAL: The patient was admitted to a telemetry unit for close observation and temporarily restricted activity. Control of his ventricular response require three agents initially including digoxin, metoprolol, and amiodarone. He was started on Eliquis oral anticoagulant therapy. Clinical examination showed markedly elevated neck veins and dependent edema. He had a barrel chest with slightly reduced chest expansion but no audible inspiratory rales. Chest x-ray did show plump pulmonary trunk and proximal pulmonary vessels with accentuated interstitial markings but no obvious Meagan B lines or pleural effusions. Echocardiographic study documented mild concentric left ventricle hypertrophy was flattening of the septum due to right ventricular pressure overload yet preserved global systolic function, LVEF 60%. Prominently dilated left atrium with elevated estimated mean left atrial pressure. Prominently dilated right heart chambers with moderately severe pulmonary hypertension. At least moderately dilated IVC with absent respiratory collapse. Mild aortic valvular sclerosis with very mild insufficiency. Moderate mitral annular calcification with mild insufficiency. Normal tricuspid valve with severe insufficiency. No pericardial effusion. Admission complete blood count showed a hemoglobin of 13.8. Normal stool for occult blood was negative. Admission chemistries can showed electrolyte balance but BUN 28, creatinine 1.48, random glucose 117, magnesium level 1.9. Pro-BNP level 1421. Ultra sensitive TSH was normal at 2.86. Liver function studies were normal with albumin 3.7. Urinalysis was negative for protein, hematuria or pyuria. He was kept on a no added salt, low carbohydrate diet with 50 ounces per day fluid intake restriction and given combination torsemide 10 mg daily with spirolactone 12.5 mg daily. His Meloxicam was discontinued and his amlodipine was discontinued. Lisinopril was switched to 10 mg twice a day with hold parameters for blood pressure. His ranitidine was replaced with Pepcid 20 mg daily. Over the course of 3 days in hospital he had lost 9 kg of fluid with significant improvement in his congested state. His final chemistry today shows electrolyte balance with potassium 4.3, BUN was 25, creatinine was 1.59 (not significantly changed from admission), fasting glucose 112, albumin 3.6, serial Troponin I levels have been negative. He was seen by the cardiac rehab program for CHF education and gradual ambulation. In fact been walking around the pal with considerably less shortness that he had been experiencing at home. He claims not to have been aware of this problem prior to his admission. FINAL DIAGNOSIS: 1. New onset atrial fibrillation currently persistent but rate controlled. 2. Heart failure (diastolic dysfunction acute on chronic) due to underlying hypertensive heart disease with decompensation with new onset atrial fibrillation - status improving. 3. Abnormal EKG. The patient is in keeping with his body habitus and pulmonary disease as well as his underlying hypertensive heart disease. Our plan is to obtain a stress heart scan in the near future as an outpatient. 4. Hypertensive heart disease (benign with heart failure): Current blood pressure is well-controlled at 130/70. Heart rate 80. Discharge weight 250 pounds. 5. Cor pulmonale/right heart failure: As mentioned his right-sided dysfunction appears out of keeping with his left ventricular disease. Screening nocturnal oximetry was borderline abnormal. We intend to obtain an official pulmonary medicine consultation for further sleep evaluation. 6. BMI 35.7: I have encouraged a low carbohydrate reducing diet to reduce cardiac and pulmonary workload. DISCHARGE MEDICATIONS AND RECOMMENDATIONS: -The patient was to follow a and no added salt, low carbohydrate diet with 50 ounces per day fluid intake restriction. -Activity was to be light for the next week until he is seen in our office. -He will be taking his heart rate and blood pressure twice daily for the time being prior to his atenolol dosage. -He will also be obtaining daily morning weights postvoiding. -He was given a followup appointment with EKG June 14 at 08:30 a.m. with blood work to be obtained the day before including a complete blood count and renal profile. His medications: -Amiodarone 2 mg four times a day until June 08 and then 200 mg three times a day until July 08 then 200 mg twice a day for the time being. -Eliquis 5 mg twice a day, -Pepcid 20 mg daily, -lisinopril 10 mg twice a day hold for systolic blood pressure less than 140, -Torsemide 10 mg daily, hold for dizziness or systolic blood pressure less than 120, -Spironolactone 12.5 mg daily daily, when he takes torsemide. -Atenolol will be 50 mg twice a day, hold for heart rate less than 60 if his pulse is regular (sinus rhythm) or his heart rate is less than 90 beats per minute if totally irregular (atrial fibrillation). He has been encouraged to contact our office should he have any questions or concerns. These instructions were thoroughly discussed with the patient, his daughter and . [place]
== END 2019-06-01 20:00 | disposition home or self-care (01) | DRG 201 ==
LOC: M ED 19:38 → M ED INP 19:39 → M ICU 05-30 02:47 → OBSVTOIN 05-30 07:12 → M PCU 05-30 15:51
PROVIDERS: ADMIT Internal Medicine Cardiovascular Disease; ATTEND Internal Medicine Cardiovascular Disease
DX: I48.19 Other persistent atrial fibrillation (principal); I50.33 Acute on chronic diastolic (congestive) heart failure; I11.0 Hypertensive heart disease with heart failure; I27.81 Cor pulmonale (chronic); E78.00 Pure hypercholesterolemia, unspecified; E66.9 Obesity, unspecified; Z68.35 Body mass index [BMI] 35.0-35.9, adult; Z79.899 Other long term (current) drug therapy; I08.0 Rheumatic disorders of both mitral and aortic valves

== ENCOUNTER → 2019-06-13 | Outpatient (CLI) | payer BC, MEDICARE ==
[~2019-06-13] MED LIST changes: +ALDA25TA2 PO; +AMIO200T PO; +AMLO10TA5; +AMLO10TA5 PO; +ATEN50TA2 PO; +CHLO125TA; +CHLO25TA PO; +ELIQ5TAB PO; +FAMO20TA PO; +LISI-538; +LISI-538 PO; +LISI10TA4 PO; +RANI1TAB38 PO; +TORS10TA3 PO
[2019-06-13 11:49] LABS: HEMATOCRIT 46.7 % (42.0-52.0); HEMOGLOBIN 15.1 g/dl (13.5-17.5); MEAN CORPUSCULAR HEMOGLOBIN 29.3 pg (27.0-33.0); MEAN CORPUSCULAR HGB CONC 32.3 g/dl (32.0-36.5); MEAN CORPUSCULAR VOLUME 90.5 fl (80.0-96.0); PLATELET COUNT, AUTOMATED 186 10^3/uL (150-450); RED BLOOD COUNT 5.16 10^6/uL (4.30-6.10); WHITE BLOOD COUNT 9.3 10^3/uL (4.0-10.0)
[2019-06-13 12:23] LABS: ALBUMIN 4.6 GM/DL (3.2-5.2); CALCIUM LEVEL 9.7 MG/DL (8.8-10.2); CREATININE FOR GFR 1.69 MG/DL (0.70-1.30); GLOMERULAR FILTRATION RATE 43.6 (>49); PHOSPHORUS LEVEL 2.9 MG/DL (2.5-4.9); POTASSIUM SERUM 4.6 MEQ/L (3.5-5.1)
== END ==
LOC: M LRY 09:31
PROVIDERS: ATTEND Internal Medicine Cardiovascular Disease
DX: I48.19 Other persistent atrial fibrillation (principal); N19 Unspecified kidney failure; I50.32 Chronic diastolic (congestive) heart failure; I11.0 Hypertensive heart disease with heart failure

== ENCOUNTER → 2020-01-01 | Outpatient (CLI) | payer MEDICARE ==
[~2020-01-01] MED LIST changes: -RANI-356 PO; +RANI-397 PO
--- NOTE | 2020-01-06 08:18 | SLEEPCENT ---
DATE OF STUDY: 01/01/2020 ORDERED BY: [place] Luo MD Nocturnal polysomnography was performed for evaluation of sleep physiology in this patient with a history of excessive somnolence and nonrestorative sleep who has comorbidities of hypertension and atrial fibrillation. 7 hours and 42 minutes of data were reviewed. There were 312 minutes of sleep identified. Sleep latency was prolonged at 37 minutes. Rapid eye movement (REM) latency was prolonged at 132 minutes. Sleep architecture was fair. There was some fragmentation and poor progression of the period of awake after 3:00 a.m. resulting in reduced sleep efficiency of 69%. Two REM cycles were, however, noted. The patient's electrocardiogram showed atrial fibrillation with a controlled ventricular response rate of 46 beats per minute. Rate ranged 40-60 beats per minute. Electroencephalogram (EEG) showed reasonably normal waveforms for awake and sleep. There were 125 respiratory events identified of 10 seconds in duration or greater for an apnea-hypopnea index of 24. The events were primarily obstructive, not exclusive to sleep stage nor body posture. Arousals from respiratory events occurred 11.3 times per hour, and oxygen desaturations were seen into the 80s. There was some activity noted in the limb electromyelogram (EMG) leads, but limb movement arousals were few. Snoring was noted over the entire study. IMPRESSION: Obstructive sleep apnea syndrome (G47.33). Apnea-hypopnea index 24. RECOMMENDATION: The patient should be encouraged to return to the sleep disorder center for pressure therapy. In the interim, alcohol and sedative avoidance should be practiced and caution exercised during the operation of motor vehicles.
== END ==
LOC: M SLEEP 20:00
PROVIDERS: ATTEND Internal Medicine Pulmonary Disease
DX: G47.33 Obstructive sleep apnea (adult) (pediatric) (principal)

== ENCOUNTER → 2020-01-10 | Outpatient (CLI) | payer MEDICARE ==
[~2020-01-10] MED LIST changes: -AMIO200T PO; +AMIO200T3 PO; -AMLO10TA5; -AMLO10TA5 PO; +AMLO1TAB24 PO; +AMLO1TAB25; +AMLO1TAB25 PO; -AMLO5TAB6 PO; -LISI-538; -LISI-538 PO; +LISI10TA22 PO; -LISI10TA4 PO; -LISI20TA19 PO; +LISI20TA33; +LISI20TA33 PO; +LISI20TA35 PO
[2020-01-10 16:29] LABS: HEMATOCRIT 40.3 % (42.0-52.0); HEMOGLOBIN 13.7 g/dl (13.5-17.5); MEAN CORPUSCULAR HEMOGLOBIN 30.6 pg (27.0-33.0); PLATELET COUNT, AUTOMATED 201 10^3/uL (150-450); RED BLOOD COUNT 4.48 10^6/uL (4.30-6.10)
[2020-01-10 16:38] LABS: ALBUMIN 4.3 GM/DL (3.2-5.2); BILIRUBIN,TOTAL 0.9 MG/DL (0.2-1.0); CALCIUM LEVEL 9.1 MG/DL (8.8-10.2); CREATININE FOR GFR 1.68 MG/DL (0.70-1.30); GLOMERULAR FILTRATION RATE 43.7 (>49); POTASSIUM SERUM 4.7 MEQ/L (3.5-5.1); THYROID STIMULATING HORMONE 2.35 uIU/ML (0.358-3.740); TOTAL PROTEIN 7.4 GM/DL (6.4-8.2)
== END ==
LOC: M LRY 12:49
PROVIDERS: ATTEND Internal Medicine Cardiovascular Disease
DX: I48.0 Paroxysmal atrial fibrillation (principal); I50.32 Chronic diastolic (congestive) heart failure

== ENCOUNTER → 2020-02-02 | Outpatient (CLI) | payer MEDICARE ==
[~2020-02-02] MED LIST changes: +LISI-538; +LISI-538 PO; -LISI10TA22 PO; +LISI10TA4 PO; -LISI20TA33; -LISI20TA33 PO
--- NOTE | 2020-02-14 11:56 | SLEEPCENT ---
DATE OF PROCEDURE: 02/02/2020 ORDERED BY: Dr. Luo Nocturnal polysomnography was performed for the titration of pressure therapy in this patient with obstructive sleep apnea syndrome. Apnea-hypopnea index of 24. For testing the patient was fit with a ResMed AirFit F20 full-face mask of large size; 4 cm of water pressure were applied to the circuit and the lights were extinguished. 7 hours and 48 minutes of data were reviewed. There were 262.5 minutes of sleep identified. Sleep latency was prolonged 49.5 minutes. Rapid eye movement (REM) latency was normal at 72 minutes. Sleep architecture improved with optimal pressure therapy. There were 5 REM cycles noted. Overall sleep efficiency 56.8%. The patient's electrocardiogram showed a sinus rhythm with an average heart rate of 42 beats per minute. Rate ranged 40-60. Occasional premature ventricular contractions (PVCs) were seen. Electroencephalogram (EEG) showed normal waveforms for awake and sleep. Respiratory events were fully palliated with CPAP at a pressure of +7. Some limb activity was appreciated but limb movement arousal index was less than 1. IMPRESSION: Obstructive sleep apnea syndrome (G47.33). RECOMMENDATIONS: Nightly use of pressure therapy 7 cm of water.
== END ==
LOC: M SLEEP 20:00
PROVIDERS: ATTEND Internal Medicine Pulmonary Disease
DX: G47.33 Obstructive sleep apnea (adult) (pediatric) (principal)

== ENCOUNTER → 2020-02-06 | Outpatient (REF) | payer BC, MEDICARE ==
[2020-02-06 17:01] LABS: HEMATOCRIT 41.3 % (42.0-52.0); HEMOGLOBIN 13.7 g/dl (13.5-17.5); MEAN CORPUSCULAR HEMOGLOBIN 30.4 pg (27.0-33.0); MEAN CORPUSCULAR HGB CONC 33.2 g/dl (32.0-36.5); MEAN CORPUSCULAR VOLUME 91.8 fl (80.0-96.0); PLATELET COUNT, AUTOMATED 183 10^3/uL (150-450); WHITE BLOOD COUNT 6.2 10^3/uL (4.0-10.0)
[2020-02-06 17:03] LABS: ALBUMIN 4.2 GM/DL (3.2-5.2); BILIRUBIN,TOTAL 0.8 MG/DL (0.2-1.0); CALCIUM LEVEL 9.2 MG/DL (8.8-10.2); CHOLESTEROL RISK RATIO 4.456 (<5); CREATININE FOR GFR 1.9 MG/DL (0.70-1.30); GLOMERULAR FILTRATION RATE 37.9 (>49); MAGNESIUM LEVEL 2.6 MG/DL (1.8-2.4); POTASSIUM SERUM 5.2 MEQ/L (3.5-5.1); TOTAL PROTEIN 7.3 GM/DL (6.4-8.2)
== END ==
LOC: M SFHCPLAZ 09:37
PROVIDERS: ATTEND Internal Medicine
DX: K21.9 Gastro-esophageal reflux disease without esophagitis (principal); Z86.010 Personal history of colon polyps; I10 Essential (primary) hypertension; E78.00 Pure hypercholesterolemia, unspecified

== ENCOUNTER → 2020-06-25 | Outpatient (CLI) | payer BC, MEDICARE ==
[2020-06-25 16:43] LABS: HEMATOCRIT 42.4 % (42.0-52.0); HEMOGLOBIN 13.5 g/dl (13.5-17.5); MEAN CORPUSCULAR HEMOGLOBIN 29.2 pg (27.0-33.0); MEAN CORPUSCULAR HGB CONC 31.8 g/dl (32.0-36.5); MEAN CORPUSCULAR VOLUME 91.8 fl (80.0-96.0); PLATELET COUNT, AUTOMATED 191 10^3/uL (150-450); RED BLOOD COUNT 4.62 10^6/uL (4.30-6.10); WHITE BLOOD COUNT 7.6 10^3/uL (4.0-10.0)
[2020-06-25 17:17] LABS: ALBUMIN 4.5 GM/DL (3.2-5.2); BILIRUBIN,TOTAL 0.6 MG/DL (0.2-1.0); CALCIUM LEVEL 9.2 MG/DL (8.8-10.2); CREATININE FOR GFR 2.02 MG/DL (0.70-1.30); GLOMERULAR FILTRATION RATE 35.2 (>49); POTASSIUM SERUM 4.8 MEQ/L (3.5-5.1); THYROID STIMULATING HORMONE 3.49 uIU/ML (0.358-3.740)
== END ==
LOC: M WUC 14:16
PROVIDERS: ATTEND Internal Medicine Cardiovascular Disease
DX: I48.0 Paroxysmal atrial fibrillation (principal); I50.32 Chronic diastolic (congestive) heart failure

== ENCOUNTER → 2020-08-05 | Outpatient (CLI) | payer MEDICARE ==
--- NOTE | 2020-08-05 11:16 | REP ---
INDICATION: PAROXYSMAL ATRIAL FIBRILLATION COMPARISON: 05/29/2019 TECHNIQUE: PA and lateral. FINDINGS: The mediastinum and cardiac silhouette are normal. The lung mitchell are clear and without acute consolidation, effusion, or pneumothorax. The skeletal structures are intact and normal. IMPRESSION: No acute cardiopulmonary process. <Electronically signed by Francisco J Ngo > 08/05/20 1114
[2020-08-05 15:18] LABS: HEMATOCRIT 40.1 % (42.0-52.0); HEMOGLOBIN 13.1 g/dl (13.5-17.5); MEAN CORPUSCULAR HEMOGLOBIN 29.6 pg (27.0-33.0); MEAN CORPUSCULAR HGB CONC 32.7 g/dl (32.0-36.5); MEAN CORPUSCULAR VOLUME 90.5 fl (80.0-96.0); PLATELET COUNT, AUTOMATED 177 10^3/uL (150-450); RED BLOOD COUNT 4.43 10^6/uL (4.30-6.10); WHITE BLOOD COUNT 6.3 10^3/uL (4.0-10.0)
[2020-08-05 15:50] LABS: ALBUMIN 4.7 GM/DL (3.2-5.2); BILIRUBIN,TOTAL 0.8 MG/DL (0.2-1.0); CALCIUM LEVEL 9.2 MG/DL (8.8-10.2); CREATININE FOR GFR 2.3 MG/DL (0.70-1.30); GLOMERULAR FILTRATION RATE 30.3 (>49); PHOSPHORUS LEVEL 3.2 MG/DL (2.5-4.9); POTASSIUM SERUM 4.8 MEQ/L (3.5-5.1); THYROID STIMULATING HORMONE 4.14 uIU/ML (0.358-3.740); TOTAL PROTEIN 7.5 GM/DL (6.4-8.2)
== END ==
LOC: M WUC 10:32
PROVIDERS: ATTEND Internal Medicine Cardiovascular Disease
DX: N19 Unspecified kidney failure (principal); I50.32 Chronic diastolic (congestive) heart failure; I11.0 Hypertensive heart disease with heart failure; I48.0 Paroxysmal atrial fibrillation

== ENCOUNTER → 2020-08-13 | Outpatient (REF) | payer MEDICARE ==
[~2020-08-13] MED LIST changes: -LISI-538; -LISI-538 PO; +LISI10TA22 PO; -LISI10TA4 PO; +LISI20TA33; +LISI20TA33 PO
== END ==
LOC: M SFHCPLAZ 11:40
PROVIDERS: ATTEND Internal Medicine
DX: I10 Essential (primary) hypertension (principal); R73.01 Impaired fasting glucose; E78.00 Pure hypercholesterolemia, unspecified; Z12.5 Encounter for screening for malignant neoplasm of prostate

== ENCOUNTER → 2020-08-15 | Outpatient (CLI) | payer MEDICARE ==
[2020-08-15 10:35] LABS: ALBUMIN 4.5 GM/DL (3.2-5.2); BILIRUBIN,TOTAL 0.9 MG/DL (0.2-1.0); CALCIUM LEVEL 9.5 MG/DL (8.8-10.2); CHOLESTEROL RISK RATIO 4.146 (<5); CREATININE FOR GFR 2.68 MG/DL (0.70-1.30); GLOMERULAR FILTRATION RATE 25.4 (>49); MAGNESIUM LEVEL 2.7 MG/DL (1.8-2.4); POTASSIUM SERUM 4.8 MEQ/L (3.5-5.1); TOTAL PROTEIN 7.6 GM/DL (6.4-8.2)
[2020-08-15 11:07] LABS: HEMOGLOBIN A1c 5.5 %
== END ==
LOC: M WUC 08:14
PROVIDERS: ATTEND Internal Medicine
DX: R73.01 Impaired fasting glucose (principal); I10 Essential (primary) hypertension; E78.00 Pure hypercholesterolemia, unspecified; Z12.5 Encounter for screening for malignant neoplasm of prostate
CPT/HCPCS: 36415; 80053; 80061; 83036; 83735; G0103

== ENCOUNTER → 2020-08-26 | Outpatient (CLI) | payer MEDICARE ==
[~2020-08-26] MED LIST changes: +LISI-538; +LISI-538 PO; -LISI10TA22 PO; +LISI10TA4 PO; -LISI20TA33; -LISI20TA33 PO
[2020-08-26 13:50] LABS: ALBUMIN 4.7 GM/DL (3.2-5.2); CALCIUM LEVEL 9.2 MG/DL (8.8-10.2); CREATININE FOR GFR 2.21 MG/DL (0.70-1.30); GLOMERULAR FILTRATION RATE 31.8 (>49); PHOSPHORUS LEVEL 2.8 MG/DL (2.5-4.9); POTASSIUM SERUM 5.4 MEQ/L (3.5-5.1)
== END ==
LOC: M WUC 09:50
PROVIDERS: ATTEND Internal Medicine Cardiovascular Disease
DX: I50.32 Chronic diastolic (congestive) heart failure (principal); N19 Unspecified kidney failure

== ENCOUNTER → 2020-09-04 | Outpatient (CLI) | payer MEDICARE ==
[~2020-09-04] MED LIST changes: -LISI-538; -LISI-538 PO; +LISI10TA22 PO; -LISI10TA4 PO; +LISI20TA33; +LISI20TA33 PO
[2020-09-04 16:18] LABS: HEMATOCRIT 38.2 % (42.0-52.0); HEMOGLOBIN 12.5 g/dl (13.5-17.5); MEAN CORPUSCULAR HGB CONC 32.7 g/dl (32.0-36.5); MEAN CORPUSCULAR VOLUME 91.8 fl (80.0-96.0); PLATELET COUNT, AUTOMATED 195 10^3/uL (150-450); RED BLOOD COUNT 4.16 10^6/uL (4.30-6.10)
[2020-09-04 16:26] LABS: WHITE BLOOD COUNT 11.6 10^3/uL (4.0-10.0)
[2020-09-04 16:55] LABS: LYMPHOCYTES 9 % (16-44); MONOCYTES 22 % (0-5); NEUTROPHILS 60 % (28-66)
[2020-09-04 16:56] LABS: ANISOCYTOSIS 1+; PLATELET ESTIMATE NORMAL (NORMAL)
[2020-09-04 17:27] LABS: ERYTHROCYTE SEDIMENTATION RATE 59 mm/hr (0-20)
== END ==
LOC: M WUC 13:19
PROVIDERS: ATTEND Physician Assistant
DX: M70.42 Prepatellar bursitis, left knee (principal); Z79.899 Other long term (current) drug therapy

== ENCOUNTER → 2020-09-09 | Outpatient (CLI) | payer MEDICARE ==
[2020-09-09 14:49] LABS: ALBUMIN 3.8 GM/DL (3.2-5.2); CALCIUM LEVEL 9.2 MG/DL (8.8-10.2); CREATININE FOR GFR 1.59 MG/DL (0.70-1.30); GLOMERULAR FILTRATION RATE 46.5 (>49); PHOSPHORUS LEVEL 2.7 MG/DL (2.5-4.9); POTASSIUM SERUM 4.3 MEQ/L (3.5-5.1); THYROID STIMULATING HORMONE 2.35 uIU/ML (0.358-3.740)
== END ==
LOC: M WUC 11:50
PROVIDERS: ATTEND Internal Medicine Cardiovascular Disease
DX: I50.32 Chronic diastolic (congestive) heart failure (principal); I48.0 Paroxysmal atrial fibrillation

== ENCOUNTER → 2020-09-18 | Outpatient (REF) | payer MEDICARE ==
[2020-09-18 23:25] LABS: CRYSTALS, BODY FLUID NONE SEEN (NONE SEEN); SOURCE, BODY FLUID CRYSTALS LFT KNEE
[2020-09-18 23:54] LABS: SOURCE, BODY FLUID GLUCOSE LFT KNEE; SOURCE, BODY FLUID URIC ACID LFT KNEE; URIC ACID, BODY FLUID 7.3 MG/DL (NOT ESTABLISHED)
[2020-09-19 16:18] LABS: MUCIN CLOT TEST 3+ (4+)
[2020-09-20 07:01] LABS: APPEARANCE, BODY FLUID HAZY
[2020-09-20 08:15] LABS: BODY FLUID RHEUMATOID SCREEN NEGATIVE (NEGATIVE)
== END ==
LOC: M LAB REF 22:36
PROVIDERS: ATTEND Physician Assistant
DX: M25.462 Effusion, left knee (principal)

== ENCOUNTER → 2020-09-30 | Outpatient (CLI) | payer MEDICARE ==
[2020-09-30 13:12] LABS: ALBUMIN 4.4 GM/DL (3.2-5.2); CALCIUM LEVEL 9.4 MG/DL (8.8-10.2); CREATININE FOR GFR 1.64 MG/DL (0.70-1.30); GLOMERULAR FILTRATION RATE 44.8 (>49); PHOSPHORUS LEVEL 3.5 MG/DL (2.5-4.9); POTASSIUM SERUM 4.2 MEQ/L (3.5-5.1)
== END ==
LOC: M WUC 10:41
PROVIDERS: ATTEND Internal Medicine Cardiovascular Disease
DX: I50.32 Chronic diastolic (congestive) heart failure (principal)

== ENCOUNTER → 2020-10-08 | Outpatient (CLI) | payer MEDICARE ==
--- NOTE | 2020-10-08 16:50 | REP ---
INDICATION: CKD STAGE 3B. COMPARISON: None. TECHNIQUE: Multiple ultrasonographic images of the kidneys including color Doppler valuation. FINDINGS: The right kidney measures 11.4 x 6.1 x 5.2 cm. The left kidney measures 12.5 x 6.0 x 6.8 cm. The kidneys are normal size. There is increased renal sinus fat bilaterally compatible with chronic renal disease. There is no hydronephrosis on the right or the left. There are no renal calculi on the right or the left. There are no solid or cystic renal masses on the right or the left except for cortical thickening laterally in the left kidney. This is nonspecific and could represent congenital variation (dromedary hump) or a renal mass. Follow-up CT without and with IV contrast might be considered for further evaluation of this finding. Bladder: The bladder is incompletely distended and cannot be further evaluated. IMPRESSION: Focal cortical thickening at the midpole of the left kidney laterally. This is nonspecific and could represent congenital variation or a renal mass. However recommend follow-up CT without and with IV contrast for further evaluation. <Electronically signed by Tc Kate > 10/08/20 1049
== END ==
LOC: M RAD 15:54
PROVIDERS: ATTEND Internal Medicine Nephrology
DX: R93.5 Abnormal findings on diagnostic imaging of other abdominal regions, including retroperitoneum (principal); N18.32 Chronic kidney disease, stage 3b

== ENCOUNTER → 2021-01-10 | Outpatient (CLI) | payer MEDICARE ==
[2021-01-10 17:10] LABS: ALBUMIN 4.1 GM/DL (3.2-5.2); CREATININE FOR GFR 1.54 MG/DL (0.70-1.30); GLOMERULAR FILTRATION RATE 48.2 (>49); PHOSPHORUS LEVEL 2.9 MG/DL (2.5-4.9); POTASSIUM SERUM 4.2 MEQ/L (3.5-5.1); THYROID STIMULATING HORMONE 2.73 uIU/ML (0.358-3.740)
== END ==
LOC: M WUC 12:05
PROVIDERS: ATTEND Internal Medicine Cardiovascular Disease
DX: I48.0 Paroxysmal atrial fibrillation (principal); I50.32 Chronic diastolic (congestive) heart failure

== ENCOUNTER → 2021-01-21 | Outpatient (CLI) | payer MEDICARE ==
[2021-01-21 13:08] LABS: ALBUMIN 4.6 GM/DL (3.2-5.2); CALCIUM LEVEL 9.4 MG/DL (8.8-10.2); CREATININE FOR GFR 1.66 MG/DL (0.70-1.30); GLOMERULAR FILTRATION RATE 44.2 (>49); TOTAL PROTEIN 7.9 GM/DL (6.4-8.2)
== END ==
LOC: M WUC 08:54
PROVIDERS: ATTEND Internal Medicine Cardiovascular Disease
DX: I48.0 Paroxysmal atrial fibrillation (principal); I50.32 Chronic diastolic (congestive) heart failure; I11.0 Hypertensive heart disease with heart failure; Z79.01 Long term (current) use of anticoagulants

== ENCOUNTER → 2021-02-11 | Outpatient (CLI) | payer MEDICARE ==
[2021-02-11 13:10] LABS: ALBUMIN 4.2 GM/DL (3.2-5.2); CALCIUM LEVEL 9.4 MG/DL (8.8-10.2); CHOLESTEROL RISK RATIO 4.953 (<5); CREATININE FOR GFR 1.61 MG/DL (0.70-1.30); GLOMERULAR FILTRATION RATE 45.8 (>49); POTASSIUM SERUM 4.2 MEQ/L (3.5-5.1); TOTAL PROTEIN 7.5 GM/DL (6.4-8.2)
[2021-02-11 13:36] LABS: HEMOGLOBIN A1c 5.8 %
[2021-02-11 14:13] LABS: PTH INTACT 86.8 PG/ML (18.5-88.0)
== END ==
LOC: M WUC 09:39
PROVIDERS: ATTEND Internal Medicine
DX: I10 Essential (primary) hypertension (principal); R73.01 Impaired fasting glucose; E78.00 Pure hypercholesterolemia, unspecified

== ENCOUNTER → 2021-02-18 | Outpatient (REF) | payer MEDICARE | LOC: M LAB REF 18:52 | PROVIDERS: ATTEND Internal Medicine Nephrology | DX: E83.42 Hypomagnesemia (principal) ==

== ENCOUNTER → 2021-05-06 | Outpatient (CLI) | payer MEDICARE ==
[2021-05-06 13:40] LABS: CALCIUM LEVEL 9.5 MG/DL (8.8-10.2); CREATININE FOR GFR 1.89 MG/DL (0.70-1.30); GLOMERULAR FILTRATION RATE 38.1 (>49); MAGNESIUM LEVEL 2.4 MG/DL (1.8-2.4)
== END ==
LOC: M WUC 09:24
PROVIDERS: ATTEND Physician Assistant
DX: I50.32 Chronic diastolic (congestive) heart failure (principal); I48.0 Paroxysmal atrial fibrillation

== ENCOUNTER → 2021-05-28 | Outpatient (CLI) | payer MEDICARE ==
[2021-05-28 16:07] LABS: CALCIUM LEVEL 9.6 MG/DL (8.8-10.2); CREATININE FOR GFR 2.05 MG/DL (0.70-1.30); GLOMERULAR FILTRATION RATE 34.7 (>49); POTASSIUM SERUM 4.1 MEQ/L (3.5-5.1)
== END ==
LOC: M WUC 13:11
PROVIDERS: ATTEND Physician Assistant
DX: I50.32 Chronic diastolic (congestive) heart failure (principal)

== ENCOUNTER → 2021-07-14 | Outpatient (CLI) | payer MEDICARE ==
[~2021-07-14] MED LIST changes: -AMIO200T3 PO; +AMIO200T49 PO
[2021-07-14 17:01] LABS: CALCIUM LEVEL 9.5 MG/DL (8.8-10.2); CREATININE FOR GFR 1.54 MG/DL (0.70-1.30); GLOMERULAR FILTRATION RATE 48.1 (>49); POTASSIUM SERUM 4.4 MEQ/L (3.5-5.1)
== END ==
LOC: M WUC 11:37
PROVIDERS: ATTEND Physician Assistant
DX: I50.32 Chronic diastolic (congestive) heart failure (principal); Z79.82 Long term (current) use of aspirin

== ENCOUNTER → 2021-08-22 | Outpatient (CLI) | payer MEDICARE ==
[2021-08-22 16:17] LABS: CALCIUM LEVEL 9.9 MG/DL (8.8-10.2); CREATININE FOR GFR 2.04 MG/DL (0.70-1.30); GLOMERULAR FILTRATION RATE 34.7 (>49); MAGNESIUM LEVEL 2.4 MG/DL (1.8-2.4)
== END ==
LOC: M WUC 11:08
PROVIDERS: ATTEND Physician Assistant
DX: I50.32 Chronic diastolic (congestive) heart failure (principal); I48.0 Paroxysmal atrial fibrillation

== ENCOUNTER → 2021-09-22 | Outpatient (CLI) | payer MEDICARE ==
[2021-09-22 17:44] LABS: CALCIUM LEVEL 9.1 MG/DL (8.8-10.2); CREATININE FOR GFR 1.95 MG/DL (0.70-1.30); GLOMERULAR FILTRATION RATE 36.6 (>49); MAGNESIUM LEVEL 2.4 MG/DL (1.8-2.4); POTASSIUM SERUM 4.3 MEQ/L (3.5-5.1)
== END ==
LOC: M WUC 13:54
PROVIDERS: ATTEND Physician Assistant
DX: I50.32 Chronic diastolic (congestive) heart failure (principal)

== ENCOUNTER → 2021-12-19 | Outpatient (CLI) | payer MEDICARE ==
[2021-12-19 12:57] LABS: HEMATOCRIT 42.5 % (42.0-52.0); HEMOGLOBIN 13.8 g/dl (13.5-17.5); MEAN CORPUSCULAR HEMOGLOBIN 28.8 pg (27.0-33.0); MEAN CORPUSCULAR HGB CONC 32.5 g/dl (32.0-36.5); MEAN CORPUSCULAR VOLUME 88.5 fl (80.0-96.0); PLATELET COUNT, AUTOMATED 208 10^3/uL (150-450); WHITE BLOOD COUNT 6.7 10^3/uL (4.0-10.0)
[2021-12-19 13:36] LABS: ALBUMIN 4.4 GM/DL (3.2-5.2); BILIRUBIN,TOTAL 1.3 MG/DL (0.2-1.0); CALCIUM LEVEL 9.1 MG/DL (8.8-10.2); CREATININE FOR GFR 1.85 MG/DL (0.70-1.30); GLOMERULAR FILTRATION RATE 38.9 (>49); MAGNESIUM LEVEL 2.3 MG/DL (1.8-2.4); POTASSIUM SERUM 3.8 MEQ/L (3.5-5.1); THYROID STIMULATING HORMONE 2.71 uIU/ML (0.358-3.740); TOTAL PROTEIN 7.4 GM/DL (6.4-8.2)
== END ==
LOC: M WUC 10:06
PROVIDERS: ATTEND Physician Assistant
DX: I50.32 Chronic diastolic (congestive) heart failure (principal); I48.0 Paroxysmal atrial fibrillation; Z79.01 Long term (current) use of anticoagulants

== ENCOUNTER → 2022-01-18 | Outpatient (CLI) | payer MEDICARE ==
[~2022-01-18] MED LIST changes: +ALLO100T PO; +ATOR40TA75 PO; +CARV3.12 PO; +D31000CA4 PO; +HYDR-3911 PO; +TORS20TA2 PO
== END ==
LOC: M LABSMTC 11:13
PROVIDERS: ATTEND Anesthesiology
DX: Z01.812 Encounter for preprocedural laboratory examination (principal); Z20.822 Contact with and (suspected) exposure to COVID-19

== ENCOUNTER 2022-01-23 08:32 | Day surgery (SDC) | payer MEDICARE ==
[~2022-01-23] VITALS: Ht 182.9 cm; Wt 108.1 kg
[~2022-01-23 08:32] MED LIST changes: +NS 1,000 ML IV ONE
[2022-01-23] MEDS ORDERED: propofoL 200 MG/20 ML VIAL As Ordered ONE ×3 (10:38→11:18)
[2022-01-23] MEDS ORDERED: LIDOCAINE 2% MDV 20ML VIAL As Ordered ONE (10:38)
[2022-01-23] MEDS ORDERED: fentaNYL 100 MCG/2 ML INJECTION As Ordered ONE (11:03)
[2022-01-23 12:00] VITALS: BP 133/61
== END 2022-01-23 12:32 | disposition home or self-care (01) ==
LOC: M OPP 08:32
PROVIDERS: ATTEND Internal Medicine Gastroenterology
DX: Z12.11 Encounter for screening for malignant neoplasm of colon (principal); Z86.010 Personal history of colon polyps; D12.2 Benign neoplasm of ascending colon; D12.4 Benign neoplasm of descending colon; D12.5 Benign neoplasm of sigmoid colon; D12.8 Benign neoplasm of rectum; K57.30 Diverticulosis of large intestine without perforation or abscess without bleeding; K64.8 Other hemorrhoids; Z79.01 Long term (current) use of anticoagulants; Z79.02 Long term (current) use of antithrombotics/antiplatelets; Z79.899 Other long term (current) drug therapy; Z87.738 Personal history of other specified (corrected) congenital malformations of digestive system; Z87.891 Personal history of nicotine dependence
CPT/HCPCS: 45381; 45385; 88305; J3010

== ENCOUNTER → 2022-02-10 | Outpatient (CLI) | payer MEDICARE ==
[~2022-02-10] MED LIST changes: -NS 1,000 ML IV ONE
[2022-02-10 20:32] LABS: ALBUMIN 4.3 GM/DL (3.2-5.2); BILIRUBIN,TOTAL 0.7 MG/DL (0.2-1.0); CALCIUM LEVEL 9.4 MG/DL (8.8-10.2); CREATININE FOR GFR 1.68 MG/DL (0.70-1.30); GLOMERULAR FILTRATION RATE 43.5 (>49); TOTAL PROTEIN 7.3 GM/DL (6.4-8.2)
[2022-02-10 20:35] LABS: HEMOGLOBIN A1c 5.5 %
== END ==
LOC: M WUC 08:48
PROVIDERS: ATTEND Internal Medicine
DX: I10 Essential (primary) hypertension (principal); E78.00 Pure hypercholesterolemia, unspecified; R73.01 Impaired fasting glucose

== ENCOUNTER 2022-03-18 10:41 | Emergency (ER) | payer MEDICARE ==
[~2022-03-18] VITALS: Ht 182.9 cm; Wt 105.0 kg
[2022-03-18] MEDS: allopurinoL 100 MG TAB PO SCH
[2022-03-18] MEDS ORDERED: TRAM50TA2 (11:01)
[2022-03-18] MEDS ORDERED: TIZA2TA (11:01)
[2022-03-18] MEDS ORDERED: METH-1164 (11:01)
[2022-03-18 11:18] LABS: VENOUS BASE EXCESS -0.6 (-2.0-2.0); VENOUS HCO3 22.5 MEQ/L (23.0-27.0); VENOUS PARTIAL PRESSURE CO2 32.5 mmHg (38.0-50.0); VENOUS PARTIAL PRESSURE O2 103.3 mmHg (30.0-50.0); VENOUS PH 7.458 UNITS (7.330-7.430); VENOUS TOTAL CO2 23.5 MEQ/L (24.0-28.0)
[2022-03-18 11:40] LABS: HEMOGLOBIN 13.7 g/dl (13.5-17.5); MEAN CORPUSCULAR HEMOGLOBIN 29.2 pg (27.0-33.0); MEAN CORPUSCULAR HGB CONC 32.6 g/dl (32.0-36.5); MEAN CORPUSCULAR VOLUME 89.6 fl (80.0-96.0); PLATELET COUNT, AUTOMATED 133 10^3/uL (150-450); RED BLOOD COUNT 4.69 10^6/uL (4.30-6.10)
[2022-03-18 11:42] LABS: INR 2.23; PROTHROMBIN TIME 25.1 SECONDS (12.7-14.5); WHITE BLOOD COUNT 32.2 10^3/uL (4.0-10.0)
[2022-03-18 11:43] LABS: PARTIAL THROMBOPLASTIN TIME 54.1 SECONDS (25.9-37.0)
[2022-03-18 12:09] LABS: CK-MB VALUE MASS < 1.0 NG/ML (<3.6); CPK CREATINE PHOSPHOKINASE 76 U/L (39-308); MB/CK RELATIVE INDEX 1.31 (< OR =4)
[2022-03-18 12:28] LABS: BLAST CELLS 4 % (0-0); PLATELET ESTIMATE NORMAL (NORMAL); TOXIC VACUOLATION 2+
[2022-03-18 12:29] LABS: ALBUMIN 3.3 GM/DL (3.2-5.2); BILIRUBIN,DIRECT 0.5 MG/DL (0.0-0.2); BILIRUBIN,TOTAL 1.1 MG/DL (0.2-1.0); CALCIUM LEVEL 9.4 MG/DL (8.8-10.2); CREATININE FOR GFR 3.35 MG/DL (0.70-1.30); GLOMERULAR FILTRATION RATE 19.6 (>49); POTASSIUM SERUM 4.1 MEQ/L (3.5-5.1); THYROID STIMULATING HORMONE 2.37 uIU/ML (0.358-3.740); TOTAL PROTEIN 7.4 GM/DL (6.4-8.2)
[2022-03-18 13:11] LABS: CK-MB VALUE MASS < 1.0 NG/ML (<3.6); CPK CREATINE PHOSPHOKINASE 68 U/L (39-308); MB/CK RELATIVE INDEX 1.47 (< OR =4)
[2022-03-18 14:23] LABS: RSV AMPLIFICATION NEGATIVE (NEGATIVE)
[2022-03-18] MEDS ORDERED: NS 1,000 ML IV SCH (15:30)
[2022-03-18] MEDS ORDERED: ACETAMINOPHEN TAB 650MG DOSE (2X325MG) PO ONE (15:45)
[2022-03-18 15:48] LABS: PHOSPHORUS LEVEL 5.1 MG/DL (2.5-4.9); URIC ACID 7.2 MG/DL (3.5-7.2)
[2022-03-18] MEDS: MORPHINE 4 MG/ML 1ML VIAL/SYRINGE IV PRN (18:31)
[2022-03-18] MEDS ORDERED: TIZA1TAB12 PO (23:11)
[2022-03-18] MEDS ORDERED: FAMO20TA PO (23:11)
[2022-03-18] MEDS ORDERED: TRAM50TA2 PO (23:11)
[2022-03-18] MEDS ORDERED: SPIR-10 PO (23:11)
[2022-03-18] MEDS ORDERED: ELIQ5TAB PO (23:11)
[2022-03-18] MEDS ORDERED: PRES10CA2 PO (23:11)
[2022-03-18] MEDS ORDERED: DOCU100C16 PO (23:11)
[2022-03-18] MEDS ORDERED: METH-1164 PO (23:11)
[2022-03-18] MEDS ORDERED: HOME MED LIST COMPLETE! XX SCH (23:15)
[2022-03-19] MEDS ORDERED: FUROSEMIDE 40MG/4ML VIAL (J1940) IV ONE
[2022-03-19] MEDS: methocarbamoL 500 MG TAB PO PRN (00:23)
[2022-03-19] MEDS: DOCUSATE SODIUM 100MG CAPSULE PO SCH ×2 (00:23→21:22)
[2022-03-19] MEDS: APIXABAN 5 MG TAB (ELIQUIS) PO SCH ×3 (00:24→21:22)
[2022-03-19] MEDS: CARVedilol 3.125 MG TAB PO SCH ×2 (00:25→08:47)
[2022-03-19] MEDS: ATORVASTATIN 20 MG TAB PO SCH ×2 (00:25→21:19)
[2022-03-19] MEDS: traMADol 50 MG TAB PO PRN ×3 (00:25→21:21)
[2022-03-19] MEDS: allopurinoL 100 MG TAB PO SCH ×2 (02:45→08:47)
[2022-03-19] MEDS: **hydrALAZINE** 50 MG TAB PO SCH ×3 (02:45→21:23)
[2022-03-19] MEDS: MORPHINE 4 MG/ML 1ML VIAL/SYRINGE IV PRN (05:32)
[2022-03-19] MEDS ORDERED: BACLOFEN 10 MG TAB PO ONE (07:00)
[2022-03-19] MEDS ORDERED: METOPROLOL 5 MG/5 ML VIAL IV STA ×3 (08:05→12:18)
[2022-03-19] MEDS ORDERED: NS 500 ML IV ONE (08:10)
[2022-03-19] MEDS: FAMOTIDINE 20 MG TAB PO SCH (08:46)
[2022-03-19] MEDS: AMIODARONE 200 MG TAB (PACERONE) PO SCH (08:47)
[2022-03-19] MEDS ORDERED: TORSEMIDE 20 MG TAB PO SCH (09:00)
[2022-03-19 09:36] LABS: HEMATOCRIT 37.5 % (42.0-52.0); HEMOGLOBIN 12.2 g/dl (13.5-17.5); MEAN CORPUSCULAR HEMOGLOBIN 29.4 pg (27.0-33.0); MEAN CORPUSCULAR HGB CONC 32.5 g/dl (32.0-36.5); MEAN CORPUSCULAR VOLUME 90.4 fl (80.0-96.0); PLATELET COUNT, AUTOMATED 134 10^3/uL (150-450); RED BLOOD COUNT 4.15 10^6/uL (4.30-6.10); WHITE BLOOD COUNT 29.6 10^3/uL (4.0-10.0)
[2022-03-19] MEDS: SPIRONOLACTONE 25 MG TAB PO SCH (09:47)
[2022-03-19 10:08] LABS: CALCIUM LEVEL 8.5 MG/DL (8.8-10.2); CREATININE FOR GFR 2.76 MG/DL (0.70-1.30); GLOMERULAR FILTRATION RATE 24.5 (>49); MAGNESIUM LEVEL 2.8 MG/DL (1.8-2.4); POTASSIUM SERUM 3.8 MEQ/L (3.5-5.1)
[2022-03-19] MEDS: LEVALBUTEROL 1.25 MG/0.5 ML CONCENTRATE NEB INH PRN ×2 (10:10→18:29)
[2022-03-19 11:04] LABS: ATYPICAL LYMPH 4 % (0-5); BLAST CELLS 3 % (0-0); LYMPHOCYTES 7 % (16-44); MYELOCYTES 1 % (0-0); NEUTROPHILS 39 % (28-66)
[2022-03-19 11:05] LABS: PLATELET ESTIMATE DECREASED (NORMAL)
[2022-03-19 11:06] LABS: ANISOCYTOSIS 1+; TOXIC VACUOLATION 1+
[2022-03-19 11:08] LABS: MONOCYTES 42 % (0-5)
[2022-03-19 11:20] LABS: MYELOCYTES 1 % (0-0); NEUTROPHILS 32 % (28-66); PROMYELOCYTES 0 % (0-0)
[2022-03-19 11:21] LABS: ATYPICAL LYMPH 1 % (0-5); LYMPHOCYTES 5 % (16-44); METAMYELOCYTES 0 % (0-0)
[2022-03-19 11:24] LABS: MONOCYTES 56 % (0-5)
[2022-03-19] MEDS ORDERED: DIGOXIN INJ 0.5 MG/2 ML AMP (J1160) IV STA (17:59)
[2022-03-19] MEDS ORDERED: FUROSEMIDE 20MG/2ML VIAL (J1940) IV ONE (18:00)
[2022-03-19] MEDS: METOPROLOL SUCC *XL* 25MG TAB (TopROL *XL*) PO SCH (18:22)
[2022-03-20] MEDS: traMADol 50 MG TAB PO PRN ×2 (06:31→10:19)
[2022-03-20] MEDS: methocarbamoL 500 MG TAB PO PRN (06:32)
[2022-03-20] MEDS ORDERED: LIDOCAINE 5% (LIDODERM) PATCH TD ONE (07:00)
[2022-03-20] MEDS: FAMOTIDINE 20 MG TAB PO SCH (08:37)
[2022-03-20] MEDS: APIXABAN 5 MG TAB (ELIQUIS) PO SCH (08:37)
[2022-03-20] MEDS: allopurinoL 100 MG TAB PO SCH (08:38)
[2022-03-20] MEDS: AMIODARONE 200 MG TAB (PACERONE) PO SCH (08:38)
[2022-03-20 08:39] VITALS: BP 173/79
[2022-03-20] MEDS: **hydrALAZINE** 50 MG TAB PO SCH (08:39)
[2022-03-20] MEDS: METOPROLOL SUCC *XL* 25MG TAB (TopROL *XL*) PO SCH (08:39)
[2022-03-20] MEDS: SPIRONOLACTONE 25 MG TAB PO SCH (09:00)
[2022-03-20] MEDS ORDERED: TORSEMIDE 20 MG TAB PO SCH (09:00)
[2022-03-20] MEDS: LEVALBUTEROL 1.25 MG/0.5 ML CONCENTRATE NEB INH PRN ×2 (09:19→18:42)
[2022-03-20] MEDS ORDERED: MORPHINE 2 MG/ML 1ML VIAL IV PRN (09:40)
[2022-03-20] MEDS: methylPREDNISolone 40MG 1ML VIAL IV SCH ×2 (10:19→18:00)
[2022-03-20] MEDS ORDERED: ADVAIR HFA 115/21MCG INHALER INH SCH (12:15)
[2022-03-20 13:11] LABS: CALCIUM LEVEL 8.9 MG/DL (8.8-10.2); CREATININE FOR GFR 2.64 MG/DL (0.70-1.30); GLOMERULAR FILTRATION RATE 25.8 (>49); POTASSIUM SERUM 4.5 MEQ/L (3.5-5.1)
[2022-03-20 18:00] VITALS: BP 176/80
[2022-03-20] MEDS ORDERED: **NOTE PATIENT COMMENT** MISC XX ONE (19:00)
== END 2022-03-20 18:48 | disposition short-term general hospital (02) ==
LOC: M ED 10:41
DX: C95.00 Acute leukemia of unspecified cell type not having achieved remission (principal); M54.50 Low back pain, unspecified; I44.4 Left anterior fascicular block; N18.30 Chronic kidney disease, stage 3 unspecified; E78.5 Hyperlipidemia, unspecified; K21.9 Gastro-esophageal reflux disease without esophagitis; I10 Essential (primary) hypertension; Z86.79 Personal history of other diseases of the circulatory system; Z79.51 Long term (current) use of inhaled steroids; Z79.899 Other long term (current) drug therapy; Z79.811 Long term (current) use of aromatase inhibitors
CPT/HCPCS: 36415; 70450; 71045; 71250; 72131; 74176; 80048; 80076; 80503; 82550; 82553; 82803; 83605; 83690; 83735; 83880; 84100; 84443; 84484; 84550; 85025; 85610; 85730; 87631; 93005; 93041; 94640; 94760; 96361; 96374; 96375; 96376; 99285; J1160; J1940; J2270; J2920

== ENCOUNTER → 2022-04-28 | Outpatient (CLI) | payer MEDICARE ==
[~2022-04-28] MED LIST changes: +DOCU100C16 PO; +METH-1164; +METH-1164 PO; +PRES10CA2 PO; +SPIR-10 PO; +TIZA1TAB12 PO; +TIZA2TA; +TRAM50TA2; +TRAM50TA2 PO
[2022-04-28 15:34] LABS: HEMATOCRIT 33.5 % (42.0-52.0); HEMOGLOBIN 10.6 g/dl (13.5-17.5); MEAN CORPUSCULAR HEMOGLOBIN 30.2 pg (27.0-33.0); MEAN CORPUSCULAR HGB CONC 31.6 g/dl (32.0-36.5); MEAN CORPUSCULAR VOLUME 95.4 fl (80.0-96.0); PLATELET COUNT, AUTOMATED 516 10^3/uL (150-450); RED BLOOD COUNT 3.51 10^6/uL (4.30-6.10); WHITE BLOOD COUNT 10.8 10^3/uL (4.0-10.0)
[2022-04-28 16:15] LABS: ALBUMIN 2.7 GM/DL (3.2-5.2); ALT/SGPT 67 U/L (12-78); BILIRUBIN,TOTAL 0.6 MG/DL (0.2-1.0); BLOOD UREA NITROGEN 15 MG/DL (7-18); CALCIUM LEVEL 8.7 MG/DL (8.8-10.2); CARBON DIOXIDE LEVEL 26 MEQ/L (21-32); CHLORIDE LEVEL 102 MEQ/L (98-107); CREATININE FOR GFR 1.12 MG/DL (0.70-1.30); GLOMERULAR FILTRATION RATE > 60.0 (>49); GLUCOSE, FASTING 118 MG/DL (70-100); POTASSIUM SERUM 4.7 MEQ/L (3.5-5.1); SODIUM LEVEL 134 MEQ/L (136-145); TOTAL PROTEIN 6.1 GM/DL (6.4-8.2)
[2022-04-28 16:16] LABS: ANISOCYTOSIS 1+; ATYPICAL LYMPH 2 % (0-5); LYMPHOCYTES 6 % (16-44); METAMYELOCYTES 3 % (0-0); MONOCYTES 13 % (0-5); MYELOCYTES 2 % (0-0); NEUTROPHILS 40 % (28-66); PLATELET ESTIMATE INCREASED (NORMAL)
[2022-04-28 16:17] LABS: POLYCHROMASIA 1+
== END ==
LOC: M WUC 11:23
PROVIDERS: ATTEND Internal Medicine Hematology
DX: I13.0 Hypertensive heart and chronic kidney disease with heart failure and stage 1 through stage 4 chronic kidney disease, or unspecified chronic kidney disease (principal); I50.30 Unspecified diastolic (congestive) heart failure; N18.32 Chronic kidney disease, stage 3b

== ENCOUNTER → 2022-07-03 | Outpatient (CLI) | payer MEDICARE ==
[2022-07-03 11:48] LABS: INR 1.38; PROTHROMBIN TIME 17.2 SECONDS (12.5-14.5)
== END ==
LOC: M LAB 10:55
DX: Z01.818 Encounter for other preprocedural examination (principal); Z79.01 Long term (current) use of anticoagulants

== ENCOUNTER → 2022-10-09 | Outpatient (CLI) | payer MEDICARE ==
[2022-10-09 17:50] LABS: C REACTIVE PROTEIN QUANTITATIV 0.8 MG/DL (<1.0); CREATININE, URINE 153.2 MG/DL
[2022-10-09 17:54] LABS: MAU/CREAT RATIO 9.1 MCG/MG (0.0-30.0)
[2022-10-09 18:26] LABS: ALBUMIN 4.1 G/DL (3.2-5.2); CALCIUM LEVEL 9.2 MG/DL (8.3-10.6); CHOLESTEROL RISK RATIO 4.32 (<5); CREATININE FOR GFR 1.45 MG/DL (0.70-1.30); FREE T4 1.4 NG/DL (0.89-1.76); GLOMERULAR FILTRATION RATE 51.4 (>49); HDL CHOLESTEROL 39.1 MG/DL (>40); LDL CHOLESTEROL 82.1 MG/DL (<100); NON-HDL-C 129.9 MG/DL; POTASSIUM SERUM 4.3 MMOL/L (3.5-5.1); THYROID STIMULATING HORMONE 0.166 uIU/ML (0.55-4.78); TOTAL 25(OH) VITAMIN D 25.5 NG/ML (20.0-100.0); TOTAL PROTEIN 6.1 G/DL (5.7-8.2)
== END ==
LOC: M WUC 14:53
PROVIDERS: ATTEND Internal Medicine Hematology
DX: E78.00 Pure hypercholesterolemia, unspecified (principal); Z12.5 Encounter for screening for malignant neoplasm of prostate; Z79.899 Other long term (current) drug therapy
CPT/HCPCS: 36415; 80053; 80061; 82043; 82306; 82607; 83525; 84439; 84443; 86140; G0103

== ENCOUNTER → 2022-11-16 | Outpatient (REF) | payer MEDICARE ==
[2022-11-16 17:40] LABS: THYROID STIMULATING HORMONE 0.008 uIU/ML (0.55-4.78)
[2022-11-16 17:41] LABS: FREE T4 1.57 NG/DL (0.89-1.76)
== END ==
LOC: M SFHCPLAZ 16:10
PROVIDERS: ATTEND Internal Medicine Hematology
DX: C92.01 Acute myeloblastic leukemia, in remission (principal); Z79.899 Other long term (current) drug therapy

== ENCOUNTER → 2023-01-11 | Outpatient (CLI) | payer MEDICARE ==
[2023-01-11 17:44] LABS: FREE T3 2.9 PG/ML (2.3-4.2); THYROID STIMULATING HORMONE 0.159 uIU/ML (0.55-4.78)
[2023-01-11 17:45] LABS: FREE T4 1.22 NG/DL (0.89-1.76)
== END ==
LOC: M WUC 14:26
PROVIDERS: ATTEND Internal Medicine Hematology
DX: E03.9 Hypothyroidism, unspecified (principal)

== ENCOUNTER → 2023-01-29 | Outpatient (CLI) | payer MEDICARE ==
[2023-01-29 10:40] LABS: INR 1.1; PROTHROMBIN TIME 14.4 SECONDS (12.5-14.5)
== END ==
LOC: M PLALAB 09:03
DX: Z01.818 Encounter for other preprocedural examination (principal)

== ENCOUNTER → 2023-02-04 | Outpatient (CLI) | payer MEDICARE ==
[2023-02-04 11:06] LABS: BASO % 0.5 % (0.0-1.0); EOS # 0.1 10^3/uL (0.0-0.5); EOS % 1.2 % (0.0-3.0); HEMATOCRIT 38.3 % (42.0-52.0); HEMOGLOBIN 12.6 g/dl (13.5-17.5); LYMPH # 3.2 10^3/uL (1.5-5.0); LYMPH % 48.3 % (24.0-44.0); MEAN CORPUSCULAR HEMOGLOBIN 31.1 pg (27.0-33.0); MEAN CORPUSCULAR HGB CONC 32.9 g/dl (32.0-36.5); MEAN CORPUSCULAR VOLUME 94.6 fl (80.0-96.0); MONO # 0.7 10^3/uL (0.0-0.8); NEUTROPHILS # 2.6 10^3/uL (1.5-8.5); NEUTROPHILS % 39.5 % (36.0-66.0); PLATELET COUNT, AUTOMATED 150 10^3/uL (150-450); RED BLOOD COUNT 4.05 10^6/uL (4.30-6.10); WHITE BLOOD COUNT 6.6 10^3/uL (4.0-10.0)
[2023-02-04 11:26] LABS: ALBUMIN 3.7 G/DL (3.2-5.2); BILIRUBIN,TOTAL 0.7 MG/DL (0.3-1.2); CALCIUM LEVEL 9.9 MG/DL (8.3-10.6); CREATININE FOR GFR 1.36 MG/DL (0.70-1.30); GLOMERULAR FILTRATION RATE 55.3 (>49); POTASSIUM SERUM 4.2 MMOL/L (3.5-5.1); TOTAL PROTEIN 6.7 G/DL (5.7-8.2)
[2023-02-05 17:07] LABS: CMV QUANT DNA PCR (PLASMA) Positive < 200 IU/mL (Negative)
== END ==
LOC: M PLALAB 08:27
PROVIDERS: ATTEND Internal Medicine Hematology
DX: C92.01 Acute myeloblastic leukemia, in remission (principal); Z94.81 Bone marrow transplant status

== ENCOUNTER → 2023-03-13 | Outpatient (CLI) | payer MEDICARE ==
[2023-03-13 09:49] LABS: BASO % 0.5 % (0.0-1.0); EOS # 0.1 10^3/uL (0.0-0.5); EOS % 1.4 % (0.0-3.0); HEMATOCRIT 40.2 % (42.0-52.0); HEMOGLOBIN 13.1 g/dl (13.5-17.5); LYMPH # 2.3 10^3/uL (1.5-5.0); LYMPH % 42.2 % (24.0-44.0); MEAN CORPUSCULAR HEMOGLOBIN 31.6 pg (27.0-33.0); MEAN CORPUSCULAR HGB CONC 32.6 g/dl (32.0-36.5); MEAN CORPUSCULAR VOLUME 96.9 fl (80.0-96.0); MONO # 0.5 10^3/uL (0.0-0.8); MONO % 8.3 % (2.0-8.0); NEUTROPHILS # 2.6 10^3/uL (1.5-8.5); NEUTROPHILS % 47.4 % (36.0-66.0); PLATELET COUNT, AUTOMATED 143 10^3/uL (150-450); RED BLOOD COUNT 4.15 10^6/uL (4.30-6.10); WHITE BLOOD COUNT 5.6 10^3/uL (4.0-10.0)
[2023-03-13 10:22] LABS: BILIRUBIN,TOTAL 0.9 MG/DL (0.3-1.2); CALCIUM LEVEL 9.3 MG/DL (8.3-10.6); CHOLESTEROL RISK RATIO 4.67 (<5); CREATININE FOR GFR 1.37 MG/DL (0.70-1.30); GLOMERULAR FILTRATION RATE 54.8 (>49); HDL CHOLESTEROL 35.5 MG/DL (>40); LDL CHOLESTEROL 96.7 MG/DL (<100); NON-HDL-C 130.5 MG/DL; POTASSIUM SERUM 4.5 MMOL/L (3.5-5.1); TOTAL PROTEIN 6.9 G/DL (5.7-8.2)
== END ==
LOC: M LAB 08:48
DX: I48.91 Unspecified atrial fibrillation (principal); Z79.01 Long term (current) use of anticoagulants; Z79.899 Other long term (current) drug therapy

== ENCOUNTER 2023-05-04 08:50 | Day surgery (SDC) | payer MEDICARE ==
[~2023-05-04] VITALS: Ht 180.3 cm; Wt 113.4 kg
[~2023-05-04 08:50] MED LIST changes: +ACYC1TAB PO; +BACTDSTA PO; +BUDE3CAP PO; +LOSA50TA28 PO; +METO1TAB32 PO; +NS 1,000 ML IV ONE; +TAMS1CAP17 PO
[2023-05-04] MEDS ORDERED: LIDOCAINE 2% 100MG/5ML SDV (FOR ANES.) As Ordered ONE (09:42)
[2023-05-04] MEDS ORDERED: propofoL 200 MG/20 ML VIAL As Ordered ONE (09:42)
[2023-05-04 10:28] VITALS: TEMP 97.1
[2023-05-04 10:47] VITALS: BP 121/58; O2SAT 97
== END 2023-05-04 11:02 | disposition home or self-care (01) ==
LOC: M OPP 08:50
PROVIDERS: ATTEND Internal Medicine Gastroenterology
DX: Z12.11 Encounter for screening for malignant neoplasm of colon (principal); D12.5 Benign neoplasm of sigmoid colon; K62.1 Rectal polyp; K57.30 Diverticulosis of large intestine without perforation or abscess without bleeding; Z86.010 Personal history of colon polyps; I10 Essential (primary) hypertension; G47.30 Sleep apnea, unspecified; E78.5 Hyperlipidemia, unspecified; Z85.6 Personal history of leukemia; Z92.21 Personal history of antineoplastic chemotherapy; Z94.81 Bone marrow transplant status; Z83.719 Family history of colon polyps, unspecified; Z80.3 Family history of malignant neoplasm of breast

== ENCOUNTER → 2023-05-10 | Outpatient (CLI) | payer MEDICARE ==
[~2023-05-10] MED LIST changes: -NS 1,000 ML IV ONE
[2023-05-10 15:06] LABS: CALCIUM LEVEL 9.2 MG/DL (8.3-10.6); CREATININE FOR GFR 1.7 MG/DL (0.70-1.30); GLOMERULAR FILTRATION RATE 42.8 (>49); POTASSIUM SERUM 4.2 MMOL/L (3.5-5.1)
== END ==
LOC: M PLALAB 11:14
PROVIDERS: ATTEND Nurse Practitioner Adult Health
DX: I50.30 Unspecified diastolic (congestive) heart failure (principal); M79.89 Other specified soft tissue disorders

== ENCOUNTER → 2023-11-08 | Outpatient (CLI) | payer MEDICARE ==
[~2023-11-08] MED LIST changes: -HYDR-3911 PO; +HYDR50TA46 PO
[2023-11-08 14:44] LABS: BASO # 0.1 10^3/uL (0.0-0.2); BASO % 0.5 % (0.0-1.0); EOS # 0.4 10^3/uL (0.0-0.5); EOS % 3.5 % (0.0-3.0); HEMATOCRIT 36.4 % (42.0-52.0); HEMOGLOBIN 11.6 g/dl (13.5-17.5); LYMPH # 3.4 10^3/uL (1.5-5.0); LYMPH % 34.4 % (24.0-44.0); MEAN CORPUSCULAR HEMOGLOBIN 30.8 pg (27.0-33.0); MEAN CORPUSCULAR HGB CONC 31.9 g/dl (32.0-36.5); MEAN CORPUSCULAR VOLUME 96.6 fl (80.0-96.0); MONO # 0.7 10^3/uL (0.0-0.8); NEUTROPHILS # 5.4 10^3/uL (1.5-8.5); NEUTROPHILS % 54.3 % (36.0-66.0); PLATELET COUNT, AUTOMATED 296 10^3/uL (150-450); RED BLOOD COUNT 3.77 10^6/uL (4.30-6.10); WHITE BLOOD COUNT 9.9 10^3/uL (4.0-10.0)
[2023-11-08 15:10] LABS: CORTISOL PM 15.9 UG/DL (3.1-16.7)
[2023-11-08 15:12] LABS: ALBUMIN 3.1 G/DL (3.2-5.2); BILIRUBIN,TOTAL 0.8 MG/DL (0.3-1.2); CALCIUM LEVEL 8.8 MG/DL (8.3-10.6); CREATININE FOR GFR 1.56 MG/DL (0.70-1.30); GLOMERULAR FILTRATION RATE 47.1 (>42); POTASSIUM SERUM 3.9 MMOL/L (3.5-5.1); TOTAL PROTEIN 6.7 G/DL (5.7-8.2)
== END ==
LOC: M LAB 14:02
PROVIDERS: ATTEND Internal Medicine Hematology
DX: Z94.81 Bone marrow transplant status (principal); R53.83 Other fatigue; C92.01 Acute myeloblastic leukemia, in remission

== ENCOUNTER → 2023-12-29 | Outpatient (CLI) | payer MEDICARE ==
[2023-12-29 14:18] LABS: BASO % 0.4 % (0.0-1.0); EOS # 0.3 10^3/uL (0.0-0.5); EOS % 3.5 % (0.0-3.0); HEMATOCRIT 37.1 % (42.0-52.0); HEMOGLOBIN 12.3 g/dl (13.5-17.5); LYMPH # 2.9 10^3/uL (1.5-5.0); LYMPH % 40.3 % (24.0-44.0); MEAN CORPUSCULAR HEMOGLOBIN 31.6 pg (27.0-33.0); MEAN CORPUSCULAR HGB CONC 33.2 g/dl (32.0-36.5); MEAN CORPUSCULAR VOLUME 95.4 fl (80.0-96.0); MONO # 0.5 10^3/uL (0.0-0.8); MONO % 7.2 % (2.0-8.0); NEUTROPHILS # 3.5 10^3/uL (1.5-8.5); NEUTROPHILS % 48.3 % (36.0-66.0); PLATELET COUNT, AUTOMATED 192 10^3/uL (150-450); RED BLOOD COUNT 3.89 10^6/uL (4.30-6.10); WHITE BLOOD COUNT 7.1 10^3/uL (4.0-10.0)
[2023-12-29 14:40] LABS: BILIRUBIN,TOTAL 0.9 MG/DL (0.3-1.2); CALCIUM LEVEL 9.3 MG/DL (8.3-10.6); CREATININE FOR GFR 1.41 MG/DL (0.70-1.30); GLOMERULAR FILTRATION RATE 52.9 (>42); TOTAL PROTEIN 6.7 G/DL (5.7-8.2)
== END ==
LOC: M LAB 13:24
PROVIDERS: ATTEND Internal Medicine Hematology
DX: Z94.81 Bone marrow transplant status (principal); C92.01 Acute myeloblastic leukemia, in remission

== ENCOUNTER 2024-08-29 07:24 | Day surgery (SDC) | payer MEDICARE ==
[~2024-08-29] VITALS: Ht 182.9 cm; Wt 117.6 kg
[~2024-08-29 07:24] MED LIST changes: +CYAN500T14 PO; +LIDOCAINE 2% 100MG/5ML SDV (FOR ANES.) As Ordered ONE; +SYNT25TA PO; +propofoL 200 MG/20 ML VIAL As Ordered ONE
[2024-08-29] MEDS ORDERED: GLYCOPYRROLATE INJ 0.2 MG/ML 2 ML VIAL As Ordered ONE (08:44)
[2024-08-29 09:17] VITALS: TEMP 97.6
[2024-08-29 09:34] VITALS: BP 118/62; O2SAT 96
== END 2024-08-29 09:41 | disposition home or self-care (01) ==
LOC: M OPP 07:24
PROVIDERS: ATTEND Internal Medicine Gastroenterology
DX: Z12.11 Encounter for screening for malignant neoplasm of colon (principal); Z86.0100 Personal history of colon polyps, unspecified; D12.5 Benign neoplasm of sigmoid colon; Z98.890 Other specified postprocedural states; K57.30 Diverticulosis of large intestine without perforation or abscess without bleeding; K64.8 Other hemorrhoids; I11.0 Hypertensive heart disease with heart failure; I48.91 Unspecified atrial fibrillation; E11.9 Type 2 diabetes mellitus without complications; E78.5 Hyperlipidemia, unspecified; R12 Heartburn; Z86.718 Personal history of other venous thrombosis and embolism; G47.33 Obstructive sleep apnea (adult) (pediatric); Z79.01 Long term (current) use of anticoagulants; Z79.899 Other long term (current) drug therapy
CPT/HCPCS: 45385; 88305; J1596